=== PATIENT | female | born 1970 | race Caucasian/White ===

== ENCOUNTER 2020-06-14 10:55 | Outpatient (RCR) | payer MEDICAID, OTHER, SELFPAY | END 2020-07-22 13:32 | disposition other institution (70) | LOC: HO.PT 10:55 | DX: M54.41 Lumbago with sciatica, right side (principal) | CPT/HCPCS: 97110; 97112; 97162; 97535 ==

== ENCOUNTER → 2020-08-10 14:19 | Outpatient (BNVA) | payer OTHER, SELFPAY | PROVIDERS: Visit Provider Nurse Practitioner Family | DX: Z76.89 Persons encountering health services in other specified circumstances (principal) ==

== ENCOUNTER 2020-08-15 14:59 | Outpatient (REF) | payer OTHER, SELFPAY | END 2020-08-15 15:00 | disposition home or self-care (01) | LOC: HO.LAB 14:59 | PROVIDERS: Visit Provider Internal Medicine | DX: Z20.822 Contact with and (suspected) exposure to COVID-19 (principal) | CPT/HCPCS: 36415; C9803; U0003 ==

== ENCOUNTER 2020-08-26 10:45 | Outpatient (REF) | payer OTHER, SELFPAY ==
[2020-08-26 11:50] LABS: Hematocrit 41.7 % (37-47); Hemoglobin 13.3 g/dl (12.0-16.0); Mean Corpuscular HGB Conc 31.9 g/dl (31.0-35.0); Mean Corpuscular Hemoglobin 28.1 pg (27.0-33.0); Mean Corpuscular Volume 88.2 fL (80-98); Platelet Count 282 X10*3/uL (160-400); Red Blood Count 4.73 X10*6/uL (4.20-5.50); Red Cell Distribution Width 13.1 % (11.0-16.0); White Blood Count 5.6 X10*3/uL (4.8-10.8)
[2020-08-26 12:13] LABS: Alanine Aminotransferase 24 U/L (0-31); Albumin Level 4.1 g/dL (3.5-5.0); Alkaline Phosphatase 111 U/L (39-117); Anion Gap 11 (12-20); Aspartate Amino Transferase 23 U/L (5-31); Bilirubin Total 0.5 mg/dL (0.0-1.0); Blood Urea Nitrogen 14 mg/dL (9-16); Calcium 8.6 mg/dL (8.4-10.2); Carbon Dioxide 28 mmol/L (22-29); Chloride 107 mmol/L (96-108); Estimated Glomerular Filt Rate > 60; Glucose Random 120 mg/dL (60-115); Potassium 3.9 mmol/l (3.3-5.1); Sodium 142 mmol/L (135-145); Total Protein 7.1 g/dL (6.5-8.0)
== END 2020-08-26 10:46 | disposition home or self-care (01) ==
LOC: HO.LAB 10:45
PROVIDERS: Visit Provider Nurse Practitioner Family
DX: Z12.11 Encounter for screening for malignant neoplasm of colon (principal)
CPT/HCPCS: 36415; 80053; 85027

== ENCOUNTER 2020-09-23 13:41 | Emergency (ER) | payer OTHER, SELFPAY ==
--- NOTE | ~2020-09-23 | XR_ITS ---
EXAMINATION: LEFT FOOT AND LEFT ANKLE. CLINICAL INFORMATION: Tripped. Fall. Pain. COMPARISON: None TECHNIQUE: Left ankle 3 views and left foot 2 views. FINDINGS: Left ankle: There is a nondisplaced fracture tip of lateral malleolus with moderate bimalleolar soft tissue swelling. The ankle mortise and subtalar joints are normal. A moderate size calcaneal heel spur. Left foot: There is no visible acute fracture, dislocation or subluxation seen. The soft tissues are normal. XR/XR foot LT min 3V IMPRESSION: Nondisplaced fracture tip of lateral malleolus with bimalleolar soft tissue swelling. Small calcaneal healed spur.
--- NOTE | ~2020-09-23 | XR_ITS ---
EXAMINATION: LEFT FOOT AND LEFT ANKLE. CLINICAL INFORMATION: Tripped. Fall. Pain. COMPARISON: None TECHNIQUE: Left ankle 3 views and left foot 2 views. FINDINGS: Left ankle: There is a nondisplaced fracture tip of lateral malleolus with moderate bimalleolar soft tissue swelling. The ankle mortise and subtalar joints are normal. A moderate size calcaneal heel spur. Left foot: There is no visible acute fracture, dislocation or subluxation seen. The soft tissues are normal. XR/XR ankle LT min 3V IMPRESSION: Nondisplaced fracture tip of lateral malleolus with bimalleolar soft tissue swelling. Small calcaneal healed spur.
[2020-09-23 14:01] VITALS: BP 145/92; PULSE 84; RESP 18; TEMP 36.4; O2SAT 98; BMI 27.4
[2020-09-23] MEDS: oxyCODONE HCl Immed Release 5 MG TABLET PO (14:26)
[2020-09-23] MEDS: Ibuprofen 600 MG TABLET PO (14:26)
--- NOTE | 2020-09-23 14:40 | ED_ITS ---
HPI - Extremity Injury (Lower) General Chief Complaint: Extremity Injury, Lower Stated Complaint: left ankle inj Time Seen by Provider: 09/23/20 13:58 Source: patient Mode of arrival: ambulatory Limitations: no limitations History of Present Illness HPI Narrative: 50-year-old female presenting to the ED after she tripped and fell down 3 steps at her home yesterday where she missed the last step injuring her left ankle/foot now has persistent pain/swelling and bruising and limping with walking. Patient denies head injury or loss of consciousness. Denies any paresthesias or any other injuries complaints or concerns at this time. MD complaint: ankle injury, foot injury and fall Onset (ago): day(s) (yesterday ) Type of Injury: unknown Place: home Severity: severe Severity scale (1-10): 10 Relieving factors: nothing Exacerbating factors: weight bearing, movement and palpation Context: fall Associated symptoms: swelling Other symptoms: none Treatments prior to arrival: other ([id number] Motrin Tylenol no symptomatic relief) Related Data Home Medications Medication Instructions Recorded Confirmed naproxen 500 mg tablet 500 mg PO BID 08/10/20 09/12/20 Previous Rx's Medication Instructions Recorded bisacodyl 5 mg tablet,delayed 10 mg PO ONCE 1 Days #2 tab 08/10/20 release polyethylene glycol 3350 17 238 g PO ONCE #238 g 08/10/20 gram/dose oral powder acetaminophen [Tylenol Extra 1,000 mg PO QID PRN #14 tab 09/23/20 Strength] ibuprofen 800 mg PO Q8H PRN #14 tab 09/23/20 oxycodone 5 mg PO BID PRN #10 tab 09/23/20 Allergies Allergy/AdvReac Type Severity Reaction Status Date / Time No Known Allergies Allergy Verified 08/10/20 14:20 Review of Systems Review of Systems: Constitutional : No changes in activity, No lethargy, No recent prior head injury, No agitation, No increased fussiness ENT/Mouth : No Ear Pain, No Nasal discharge/drainage Eyes: No Eye Pain, No Swelling, No Redness, No Foreign Body, No Vision Changes Cardiovascular : No Chest Pain, No SOB Respiratory : No Cough Gastrointestinal : No Nausea, No Vomiting, No abdominal Pain Genitourinary : No Dysuria, No Urinary Frequency, No Urinary Incontinence, No Urgency, No Flank Pain Musculoskeletal : + joint pain, No neck stiffness, No back pain/injury Skin : No lacerations Neuro : No unsteady gait, No Paresthesias, No Loss of Consciousness, No altered mental status, No Headache Yes all other systems are reviewed and are negative [facility] Past Medical History Attestation statement: The following information was validated with the patient. Medical History No significant medical problems Surgical History Hx of cholecystectomy Family History Family History Father No problems noted. Mother Alive and well Social History Social History Alcohol intake: never Smoking Status: Never smoker Advance Directives: No Advance Directives Information Provided: Yes Physical Exam Vital Signs: Vital Signs: Last Vital Signs Temp 97.6 F 09/23/20 14:01 Pulse 84 09/23/20 14:01 Resp 18 09/23/20 14:01 BP 145/92 H 09/23/20 14:01 Pulse Ox 98 09/23/20 14:01 Body Mass Index 27.4 vital signs have been reviewed as normal and appeared to be correct. Blood pressure normal. Heart rate normal. Respiration rate normal. Temperature normal. Oxygen saturation normal. Appearance: Alert. Oriented X3. No acute distress. Head: Normal external exam. Normocephalic. Atraumatic. No Mina signs noted. No raccoon eyes noted Eyes: PERRLA. EOMI. Conjunctiva and sclera normal. Eyelids normal. ENT: Pharynx normal. Uvula midline. Moist mucous membranes. Neck: Normal inspection. Neck supple. FROM. No adenopathy. No meningeal signs. CVS: Normal heart rate and rhythm. Heart sound normal. No murmurs noted. Pulses normal throughout. Respiratory: No respiratory distress. Painless inspiration. Breath sounds normal. No wheezes/rales/rhonchi noted. Chest nontender. No accessory muscle usage noted or decreased air movement noted. Back: Full range of motion noted. Skin: Skin warm and dry. Normal skin color. Normal skin turgor. No rashes/lesions/lacerations noted. Extremities: Patient tender to palpation of medial and lateral malleolus of the left ankle with moderate soft tissue swelling and ecchymosis noted. No laxity on my exam. Pulses are within normal limits. Negative Reyes test. Achilles tendon is intact. No lower extremity edema. Otherwise all other Extremities exhibit normal range of motion and nontender. Neuro: Oriented X 3. No motor deficit. No sensory deficit. Reflexes normal. Course Course Course Narrative: 50-year-old female presenting to the ED after she had a mechanical fall down her steps at her home with injury to her left ankle/foot yesterday. Denied head injury or loss of consciousness. - x-ray obtained revealed nondisplaced fracture tip of lateral malleolus with bimalleolar soft tissue swelling. Will place in a posterior splint provide crutches then DC home with referral to Orthopedics and instructions return if any new or worsening symptoms. Patient understands agrees the plan. Procedures Orthopedic Splinting/Casting Injury #1: Side: left Lower Extremity Injury Location: lower leg and ankle Lower Extremity Immobilizer: posterior splint Other Orthopedic Equipment: crutches MDM - Extremity Injury (Lower) Medical Records Attestation: I reviewed the patient's medical records. Lab Data Attestation: I reviewed the patient's lab results. Imaging Data Left ankle/foot x-ray: Attestation: I personally reviewed and interpreted this imaging study as follows: Radiologist's impression: FINDINGS: Left ankle: There is a nondisplaced fracture tip of lateral malleolus with moderate bimalleolar soft tissue swelling. The ankle mortise and subtalar joints are normal. A moderate size calcaneal heel spur. Left foot: There is no visible acute fracture, dislocation or subluxation seen. The soft tissues are normal. XR/XR foot LT min 3V IMPRESSION: Nondisplaced fracture tip of lateral malleolus with bimalleolar soft tissue swelling. Small calcaneal healed spur. Discharge Plan Discharge Clinical Impression: Fall, Fracture of left malleolus, Ankle bruise Patient Disposition: Home, Self-Care Instructions: Ankle Fracture (ED), Crutch Instructions (ED), Splint Care (ED) Prescriptions: New ibuprofen 800 mg tablet 800 mg PO Q8H PRN (Reason: pain) Qty: 14 RF: 0 oxycodone 5 mg tablet 5 mg PO BID PRN (Reason: pain) Qty: 10 RF: 0 acetaminophen [Tylenol Extra Strength] 500 mg tablet 1,000 mg PO QID PRN (Reason: fever or pain) Qty: 14 RF: 0 No Action naproxen 500 mg tablet 500 mg PO BID RF: 0 polyethylene glycol 3350 [Miralax] 17 gram/dose powder 238 g PO ONCE Qty: 238 RF: 0 bisacodyl [Dulcolax (bisacodyl)] 5 mg tablet,delayed release (DR/EC) 10 mg PO ONCE 1 Days Qty: 2 RF: 0 Referrals: Martha Harvey MD [Physician] - 2 days (Call Saturday to make a follow-up appointment within the next 7-10 days) Stand Alone Forms: Work/School Release Print Language: Vietnamese
== END 2020-09-23 15:26 | disposition home or self-care (01) ==
PROVIDERS: Emergency Provider Emergency Medicine Emergency Medical Services
DX: S82.65XA Nondisplaced fracture of lateral malleolus of left fibula, initial encounter for closed fracture (principal); S90.02XA Contusion of left ankle, initial encounter; W10.8XXA Fall (on) (from) other stairs and steps, initial encounter; M77.32 Calcaneal spur, left foot; Y93.9 Activity, unspecified; Y92.018 Other place in single-family (private) house as the place of occurrence of the external cause; Y99.9 Unspecified external cause status
CPT/HCPCS: 29515; 73610; 73630; 99283

== ENCOUNTER 2020-10-10 09:45 | Outpatient (REF) | payer OTHER, SELFPAY ==
--- NOTE | ~2020-10-10 | XR_ITS ---
EXAMINATION: XR ANKLE, LEFT CLINICAL INFORMATION: Fracture COMPARISON: Previous x-ray September 2020 TECHNIQUE: AP, lateral, and mortise views of the left ankle. FINDINGS: Bone alignment is normal. Minimally displaced fracture of the lateral malleolus appears unchanged. No other fracture is seen. The ankle mortise is normal. There are calcaneal spurs. There is lateral soft tissue swelling. There is an overlying splint. XR/XR ankle LT min 3V IMPRESSION: No change in minimally displaced fracture of the lateral malleolus from previous exam.
== END 2020-10-10 09:46 | disposition home or self-care (01) ==
LOC: HO.XRAY 09:45
PROVIDERS: Visit Provider Physician Assistant
DX: M25.572 Pain in left ankle and joints of left foot (principal); S82.832A Other fracture of upper and lower end of left fibula, initial encounter for closed fracture
CPT/HCPCS: 73610; 99202

== ENCOUNTER 2020-11-08 09:33 | Day surgery (SDC) | payer OTHER, SELFPAY ==
--- NOTE | 2020-09-14 13:37 | HO.ANESPROP2 ---
HPI - Anesthesia Eval Consult details Narrative: 50yo F for Colonoscopy [facility] Past Medical History Medical History (Updated 09/12/20 @ 14:10 by Livia Rosado) No significant medical problems Family History Family History (Updated 08/10/20 @ 14:25 by Sharyn Franz CMA) Father No problems noted. Mother Alive and well Surgical History Surgical History (Updated 08/10/20 @ 14:26 by Sharyn Franz CMA) Hx of cholecystectomy Social History Social History (Updated 09/12/20 @ 14:10 by Livia Rosado) Alcohol intake: never Smoking Status: Never smoker Meds Allergies Allergy/AdvReac Type Severity Reaction Status Date / Time No Known Allergies Allergy Verified 08/10/20 14:20 Home Medications Medication Instructions Recorded Confirmed Type naproxen 500 mg tablet 500 mg PO BID 08/10/20 09/12/20 History Exam Exam Date and Time: September 14, 2020 6667 Assessment and Plan Assessment Anesthesia Assessment: Chart Reviewed
[2020-11-02 11:32] VITALS: BMI 35.2
--- NOTE | 2020-11-07 10:41 | HO.ANESPROP2 ---
HPI - Anesthesia Eval Consult details Narrative: 50yo F for Colonoscopy PMFSH Active Problems Active Problems: All Active Problems (Updated 11/02/20 @ 12:33 by Briseida Ibanez) Left ankle pain (Acute) Closed fracture of left distal fibula (Acute) Past Medical History Medical History (Updated 11/02/20 @ 12:33 by Briseida Ibanez) Lumbago PONV (postoperative nausea and vomiting) Pruritus ani Sciatica, right side Family History Family History Father No problems noted. Mother Alive and well Surgical History Surgical History (Updated 11/02/20 @ 11:27 by Briseida Ibanez) Hx of cholecystectomy Social History Social History (Updated 11/02/20 @ 11:32 by Briseida Ibanez) Alcohol intake: never Smoking Status: Never smoker Use of substances other than those prescribed or required for medical reasons: No Advance Directives: No (unknown) Advance Directives Information Provided: No Advance Directives on File: No (unknown) Meds Allergies Allergy/AdvReac Type Severity Reaction Status Date / Time No Known Allergies Allergy Verified 11/02/20 11:25 Home Medications Medication Instructions Recorded Confirmed Last Taken Type naproxen 500 mg tablet 500 mg PO BID 08/10/20 11/02/20 Unknown History Exam Exam Date and Time: November 07, 2020 1041 Height,Weight and Vital Signs: Height 5 ft Weight 81.647 kg Assessment and Plan Assessment Anesthesia Assessment: Chart Reviewed
--- NOTE | 2020-11-08 10:00 | HO.ANESPROP2 ---
HPI - Anesthesia Eval Consult details Narrative: 50 yo female patient for colonoscopy PMFSH Active Problems Active Problems: All Active Problems (Updated 11/02/20 @ 12:33 by Briseida Ibanez) Left ankle pain (Acute) Closed fracture of left distal fibula (Acute) Past Medical History Medical History (Updated 11/02/20 @ 12:33 by Briseida Ibanez) Lumbago PONV (postoperative nausea and vomiting) Pruritus ani Sciatica, right side Family History Family History Father No problems noted. Mother Alive and well Family history of problems with anesthesia: No Surgical History Surgical History (Updated 11/02/20 @ 11:27 by Briseida Ibanez) Hx of cholecystectomy History of Problems with Anesthesia: No Social History Social History (Updated 11/02/20 @ 11:32 by Briseida Ibanez) Alcohol intake: never Smoking Status: Never smoker Use of substances other than those prescribed or required for medical reasons: No Advance Directives: No (unknown) Advance Directives Information Provided: No Advance Directives on File: No (unknown) Meds Allergies Allergy/AdvReac Type Severity Reaction Status Date / Time No Known Allergies Allergy Verified 11/02/20 11:25 Active Medications: Current Medications Generic Name Dose Route Start Last Admin Trade Name Leonidas PRN Reason Stop Dose Admin Lactated Ringer's 1,000 mls @ 100 mls/hr 11/08/20 09:45 Lr IVCONT .Q10H [facility] Home Medications Medication Instructions Recorded Confirmed Last Taken Type naproxen 500 mg tablet 500 mg PO BID 08/10/20 11/02/20 Unknown History Exam Exam Date and Time: November 08, 2020 1000 Height,Weight and Vital Signs: Height 5 ft Weight 81.647 kg Vital Signs Temp Pulse Resp BP Pulse Ox 11/08/20 10:01 97.1 F 71 16 128/66 99 Airway Mallampati Class: II TM Dist: >3cm Neck ROM: Full Loose/Missing/Broken Teeth: Yes (Broken bottom front tooth) Heart: RRR Lungs: CTAB Assessment and Plan Assessment Anesthesia Assessment: Anesthesia Plan Discussed and Chart Reviewed Final Anesthetic Review NPO: Yes ASA Class: II Final Preanesthetic Review: No Changes in Pt Med Stat, Meds/Allgs Chart Reviewed, Consent Obtained/Reviewed and Anes Risks/Benef Reviewed Patient Risk: Low Procedure Risk: Low Assessment/Block/Sedation in SS: Assess/Block/Sedation-SS Anesthetic Plan Anesthetic Plan: MAC: Disposition: Standard PACU
[2020-11-08 10:01] VITALS: BP 128/66; PULSE 71; RESP 16; TEMP 36.2; O2SAT 99
[2020-11-08] MEDS: Lactated Ringers 1,000 ML 100 ML IVCONT (10:24)
--- NOTE | 2020-11-08 10:38 | P.OP_ITS ---
Operative Note Operative Note Date of Service: 11/08/20 Narrative: Pre-op diagnosis: Colon cancer screening Post-op diagnosis: other (Diverticulosis, hemorrhoids) Procedure: COLONOSCOPY TILL CECUM Consent: Indications for the procedure and potential complications of bleeding, perforation, reaction to medications and missed diagnosis were discussed with the patient and informed consent was obtained. Instrument: Olympus PCF H 190 L variable stiffness pediatric colonoscope Monitoring: Vital signs and clinical assessment, intermittent blood pressure monitoring, continuous EKG monitoring, Pulse oximetry and Carbon Dioxide monitoring were done throughout the procedure. Colon withdrawl time was 22 minutes. Procedure: The patient was placed in the left lateral decubitis position and pre-procedure medications were administered. After a digital rectal examination of the ano-rectum, the video colonoscope was inserted into the rectum and advanced through the colon to the cecum. The colonoscope was slowly withdrawn in a retrograde panoramic fashion and the colon mucosa was carefully examined including a retroflexed view of the rectum. Findings and interventions are described below. Procedure Difficulty: Without difficulty Findings: Terminal Ileum: Not evaluated Cecum: Normal Ascending Colon: Normal Transverse Colon: Normal Descending Colon: Normal Sigmoid Colon: Moderate diverticulosis Rectum: Normal Ano-rectum: Moderate internal hemorrhoids Colon preparation: Good after copious irrigation and fair in some areas of the colon (pt took 75 to 80% of the prep) Impression and Post Procedure Diagnosis: Colonoscopy Findings: No polyps were detected Moderate diverticulosis seen in the sigmoid colon Moderate hemorrhoids on retroflexed exam. Prep was good after copious irrigation and fair in some areas of the colon (pt took 75 to 80% of the prep) Plan: Await pathology results Patient has an appointment on 11/22/20 in the GI Clinic with Jennifer Somers FNP- [place] . Can consider checking a stool FIT test every 1-2 yrs for colon cancer screening versus repeat Colonoscopy in 1-2 years due to fair prep in some areas of the colon Above findings were reviewed with the patient and diverticulosis handout was given in the discharge area Surgeon: Amy Luna MD Anesthesia: MAC [id number] Android Developer: Mya Shankar Estimated blood loss (mL): 0 Pathology: none sent Condition: stable Disposition: PACU
--- NOTE | 2020-11-08 10:38 | MHC.SHP ---
Pre-Procedural Eval Section B Chief Complaint: screening Details of Present Illness: Colon cancer screening Relevant Family History (Specify if Yes): No Relevant Social History: None Present Medications: see Short Stay Collaborative assessment Medical History: Significant History (Ankle pain) History of Previous Operations: Relevant previous surgery/procedure and date(s) (Hx of cholecystectomy) Allergies: Allergies Allergy/AdvReac Type Severity Reaction Status Date / Time No Known Allergies Allergy Verified 11/02/20 11:25 Review of Systems Sugical H&P ROS: Negative: Constitution, Cardiovascular, Respiratory and Gastrointestinal Exam Surgical H&P Exam: Normal: Heart, Normal: Lungs, Normal: Extremities and Normal: Abdomen Plan Diagnosis/Plan: Unchanged I have reviewed the history and physical and performed a pertinent physical examination on my patient. No changes have occurred unless specified.
[2020-11-08 11:24] VITALS: BP 90/51; PULSE 74; RESP 14; TEMP 37.2; O2SAT 97
[2020-11-08 11:39] VITALS: BP 113/76; PULSE 84; RESP 17; TEMP 36.7; O2SAT 98
== END 2020-11-08 12:24 | disposition home or self-care (01) ==
PROVIDERS: Visit Provider Internal Medicine Gastroenterology
PROC: 0DJD8ZZ Inspection of Lower Intestinal Tract, Via Natural or Artificial Opening Endoscopic (ICD-10-PCS; CPT 45378; principal; 2020-11-08 10:00)
DX: Z12.11 Encounter for screening for malignant neoplasm of colon (principal); K57.30 Diverticulosis of large intestine without perforation or abscess without bleeding; K64.8 Other hemorrhoids; Z90.49 Acquired absence of other specified parts of digestive tract
CPT/HCPCS: 45378

== ENCOUNTER → 2020-11-22 13:26 | Outpatient (BNVA) | payer OTHER, SELFPAY | PROVIDERS: Visit Provider Nurse Practitioner Family ==

== ENCOUNTER 2020-12-20 07:47 | Outpatient (REF) | payer OTHER, SELFPAY ==
--- NOTE | ~2020-12-20 | XR_ITS ---
EXAMINATION: XR ANKLE, LEFT CLINICAL INFORMATION: Pain left ankle dated COMPARISON: None TECHNIQUE: AP, lateral, and mortise views of the left ankle. FINDINGS: There is a small avulsion displaced fracture fragment tip of lateral malleolus, stable with left ankle in a hard cast. XR/XR ankle LT min 3V IMPRESSION: No change in the minimally displaced fracture lateral malleolus from previous exam.
== END 2020-12-20 07:48 | disposition home or self-care (01) ==
LOC: HO.HOSX 07:47
PROVIDERS: Visit Provider Physician Assistant
DX: S82.832A Other fracture of upper and lower end of left fibula, initial encounter for closed fracture (principal); M25.572 Pain in left ankle and joints of left foot
CPT/HCPCS: 73610; 99212

== ENCOUNTER → 2020-12-22 15:27 | Outpatient (BNVA) | payer OTHER, SELFPAY | PROVIDERS: PCP Internal Medicine Geriatric Medicine; Visit Provider Nurse Practitioner Family ==

== ENCOUNTER 2021-01-30 10:55 | Emergency (ER) | payer OTHER, MEDICAID, SELFPAY ==
--- NOTE | ~2021-01-30 | US_ITS ---
EXAMINATION: US VENOUS ULTRASOUND WITH DOPPLER LOWER EXTREMITY, LEFT CLINICAL INFORMATION: Left calf pain ankle fracture 09/23/2020. Assess for occult DVT. COMPARISON: None TECHNIQUE: Ultrasound of the deep veins is performed from the hip to the calf with compression sonography and color and pulse Doppler assessment. Spectral analysis with color-flow imaging is performed. FINDINGS: There is normal venous compression and respiratory variation and augmented flow. The visualized common femoral vein, superficial femoral vein, profunda femoral vein, popliteal vein, and the trifurcation region shows no evidence of deep venous thrombosis. No popliteal fossa cyst. US/US venous duplex LE LT IMPRESSION: No DVT demonstrated in the left lower extremity.
[2021-01-30 11:31] VITALS: BP 118/88; PULSE 82; RESP 16; TEMP 36.7; O2SAT 98; BMI 34.7
[2021-01-30 13:28] VITALS: BP 161/88; PULSE 92; RESP 20; O2SAT 100
--- NOTE | 2021-01-30 14:20 | ED.EXTPRO ---
HPI - Extremity Problem General Chief complaint: Extremity Problem Stated complaint: leg pain Time Seen by Provider: 01/30/21 12:29 Source: patient Mode of arrival: ambulatory History of Present Illness HPI Narrative: 50-year-old female with a past medical history diverticulosis, sciatica, nondisplaced fracture of the left lateral malleolus on 09/23/20 presenting to the ED complaining of continued left ankle pain radiating to left calf x3 days at prior fx site. Admits to associated tingling. Reports wears ortho boot out of the house for comfort however takes off at home due to discomfort. Denies SOB, CP, weakness, new or recent injury/trauma or fall since initial injury Related Data Home Medications Medication Instructions Recorded Confirmed naproxen 500 mg tablet 500 mg PO BID 08/10/20 11/02/20 hydrocortisone 2.5 % topical cream AK QID 11/22/20 with perineal applicator Previous Rx's Medication Instructions Recorded acetaminophen [Tylenol Extra 1,000 mg PO QID PRN #14 tab 09/23/20 Strength] ibuprofen 800 mg PO Q8H PRN #14 tab 09/23/20 magnesium oxide 400 mg PO DAILY #30 cap 12/22/20 acetaminophen [Tylenol Extra 500 mg PO Q6H PRN #20 tab 01/30/21 Strength] naproxen 500 mg PO BID PRN 10 Days #20 tab 01/30/21 Allergies Allergy/AdvReac Type Severity Reaction Status Date / Time No Known Allergies Allergy Verified 12/22/20 15:28 Review of Systems Review of Systems: Constitutional: No Fever, No Chills Cardiovascular: No Chest Pain, No SOB Respiratory: No Cough Musculoskeletal: + joint pain, No Myalgias, No Joint Swelling Skin: No Skin Lesions, No rash Neuro: No Weakness, No Numbness, + Paresthesias Yes all other systems are reviewed and are negative [facility] Past Medical History Attestation statement: The following information was validated with the patient. Medical History Diverticulosis Internal hemorrhoid Lumbago PONV (postoperative nausea and vomiting) Pruritus ani Sciatica, right side Surgical History Hx of cholecystectomy Family History Family History Father No problems noted. Mother Alive and well Social History Social History Household Members: Spouse and Children Alcohol intake: never Advance Directives: Yes Advance Directives Information Provided: Yes Advance Directives on File: No Patient : No Physical Exam Vital Signs: Vital Signs: Last Vital Signs Temp 98.0 F 01/30/21 11:31 Pulse 92 01/30/21 13:28 Resp 20 01/30/21 13:28 BP 161/88 H 01/30/21 13:28 Pulse Ox 100 01/30/21 13:28 Body Mass Index 34.7 Const: General: cooperative and healthy appearing Orientation/consciousness: patient oriented x3 Limitations: no limitations HENMT: Head: Yes normal to inspection Ears: hearing grossly normal bilaterally General nose exam: Normal external nose present Face and sinus: Yes normal facial exam Eyes: General: appearance normal, both eyes and all related structures EOM: EOMs intact bilaterally Neck: Neck: Yes normal visual inspection Resp: Effort & Inspection: normal respiratory effort Cardio: Rate: regular rate Peripheral pulses: dorsalis pedis present Skin: Rashes: no rashes Wounds: no wounds Neuro: Other: Left ankle with tenderness to palpation. Left calf tender to palpation. No appreciable swelling/edema. Neurovascularly intact distally. Sensation intact to light touch General: patient oriented x3, gait normal (Ambulating with ortho boot), tone normal, moves all extremities and no focal motor deficits Course Course Course Narrative: US venous duplex LE LT IMPRESSION: No DVT demonstrated in the left lower extremity >> results discussed with patient including worrisome signs and symptoms and strict return precautions. Is to follow-up with orthopedics/PCP MDM - Extremity (Nontraumatic) MDM Narrative Medical decision making narrative: 50-year-old female with a past medical history diverticulosis, sciatica, nondisplaced fracture of the left lateral malleolus on 09/23/20 presenting to the ED complaining of continued left ankle pain radiating to left calf x3 days at prior fx site. Admits to associated tingling. Per chart review patient follow-up with orthopedics on 12/20, was recommended to have patient begin physical therapy to help with range of motion and decrease stiffness. X-rays were obtained in the office at that time that revealed routine healing Concern for DVT. Low concern for new or worsening fracture without recent trauma and x-ray showing routine healing last month. Plan: Venous duplex ultrasound Discharge Plan Discharge Clinical Impression: Left ankle pain, Pain of left calf Patient Disposition: Home, Self-Care Instructions: Arthralgia (ED) Additional Instructions: Your ultrasound was negative for any DVT/blood clot. Continue to wear ortho boot as needed for comfort at home. You need to follow-up with orthopedics and her primary care doctor. Ice and elevate your leg. Take Tylenol and naproxen. Take naproxen with food. If her pain persists or worsens please return to the ED Blas ultrasonido fue negativo para cualquier trombosis venosa profunda / co?gulo de teodoro. Contin?e usando la bota ortop?dica seg?n sea necesario para blas comodidad en casa. Debe hacer un seguimiento con el ortopedista y blas m?dico de atenci?n primaria. Hielo y levante la pierna. [place] Tylenol y naproxeno. [place] naproxeno con comida. Si el dolor persiste o empeora, regrese al servicio de urgencias. Prescriptions: New acetaminophen [Tylenol Extra Strength] 500 mg tablet 500 mg PO Q6H PRN (Reason: pain or fever) Qty: 20 RF: 0 naproxen 500 mg tablet 500 mg PO BID PRN (Reason: pain) 10 Days Qty: 20 RF: 0 No Action ibuprofen 800 mg tablet 800 mg PO Q8H PRN (Reason: pain) Qty: 14 RF: 0 acetaminophen [Tylenol Extra Strength] 500 mg tablet 1,000 mg PO QID PRN (Reason: fever or pain) Qty: 14 RF: 0 naproxen 500 mg tablet 500 mg PO BID RF: 0 hydrocortisone 2.5 % cream with perineal applicator [place] QID RF: 0 magnesium oxide 400 mg magnesium capsule 400 mg PO DAILY Qty: 30 RF: 2 Referrals: Mita Salamanca PA-C [Physician Detail Technician] - 1 week [facility] [Primary Care Provider] - 2 days Print Language: Hebrew
== END 2021-01-30 14:42 | disposition home or self-care (01) ==
PROVIDERS: Emergency Provider Emergency Medicine
DX: M25.572 Pain in left ankle and joints of left foot (principal); M79.662 Pain in left lower leg; S82.65XD Nondisplaced fracture of lateral malleolus of left fibula, subsequent encounter for closed fracture with routine healing; X58.XXXD Exposure to other specified factors, subsequent encounter
CPT/HCPCS: 93971; 99283; 99284

== ENCOUNTER → 2021-02-03 14:21 | Outpatient (BNVA) | payer OTHER, MEDICAID, SELFPAY | PROVIDERS: Visit Provider Physician Assistant | DX: M25.572 Pain in left ankle and joints of left foot (principal); S82.832D Other fracture of upper and lower end of left fibula, subsequent encounter for closed fracture with routine healing | CPT/HCPCS: 99212 ==

== ENCOUNTER 2021-03-06 07:51 | Outpatient (REF) | payer OTHER, MEDICAID, SELFPAY | END 2021-03-06 07:52 | disposition home or self-care (01) | LOC: HO.HOSX 07:51 | PROVIDERS: Visit Provider Physician Assistant | DX: Z13.89 Encounter for screening for other disorder (principal) ==

== ENCOUNTER → 2021-04-18 10:57 | Outpatient (BNVA) | payer OTHER, MEDICAID, SELFPAY | PROVIDERS: PCP Internal Medicine Geriatric Medicine; Visit Provider Nurse Practitioner Family ==

== ENCOUNTER → 2021-05-16 08:44 | Outpatient (BNVA) | payer OTHER, MEDICAID, SELFPAY | PROVIDERS: PCP Internal Medicine Geriatric Medicine; Visit Provider Nurse Practitioner Family ==

== ENCOUNTER 2021-08-14 12:53 | Outpatient (REF) | payer MEDICAID, OTHER, SELFPAY ==
--- NOTE | ~2021-08-14 | XR_ITS ---
EXAMINATION: XR ANKLE, LEFT CLINICAL INFORMATION: Fracture follow-up COMPARISON: Left ankle x-rays 12/20/2020 TECHNIQUE: AP, lateral, and mortise views of the left ankle. FINDINGS: Interval healing of lateral malleolus fracture. A 3.5 mm osseous density abutting the inferomedial aspect of the distal most aspect of the fibula possibly represents an unfused osseous fragment. There is no appreciable soft tissue swelling of the ankle. Ankle mortise is well-maintained. Small plantar calcaneal enthesophytes. XR/XR ankle LT min 3V IMPRESSION: Healed lateral malleolar fracture.
== END 2021-08-14 12:54 | disposition home or self-care (01) ==
LOC: HO.XRAY 12:53
PROVIDERS: PCP Internal Medicine Geriatric Medicine; Visit Provider Physician Assistant
DX: S82.62XD Displaced fracture of lateral malleolus of left fibula, subsequent encounter for closed fracture with routine healing (principal); X58.XXXD Exposure to other specified factors, subsequent encounter
CPT/HCPCS: 73610

== ENCOUNTER → 2021-09-11 12:28 | Outpatient (BNVA) | payer OTHER, SELFPAY | PROVIDERS: PCP Internal Medicine Geriatric Medicine; Visit Provider Physician Assistant | DX: M25.572 Pain in left ankle and joints of left foot (principal); S82.832D Other fracture of upper and lower end of left fibula, subsequent encounter for closed fracture with routine healing | CPT/HCPCS: 99212 ==

== ENCOUNTER 2021-11-06 08:03 | Outpatient (REF) | payer OTHER, SELFPAY ==
--- NOTE | ~2021-11-06 | XR_ITS ---
EXAMINATION: XR CERVICAL SPINE XR LUMBAR SPINE CLINICAL INFORMATION: Lumbago with sciatica right side. Neck pain with radiculopathy. COMPARISON: None TECHNIQUE: 3 views lumbar spine, 5 views cervical spine. FINDINGS: LUMBAR SPINE: There is maintained lumbar lordosis. There is loss of the L5-S1 disc height. Mild ventral spondylosis. The rest of the disc heights, all vertebral disc heights and alignment are normal. No visible acute fracture, dislocation or lytic process seen. CERVICAL SPINE: There is maintained cervical lordosis. The vertebral heights, alignment and disc heights are normal. No visible acute fracture, dislocation or subluxation seen. The neural foramina are patent bilaterally. XR/XR cervical spine min 6V IMPRESSION: Degenerative disc changes L5-S1 disc level with ventral spondylosis. Unremarkable cervical spine exam.
--- NOTE | ~2021-11-06 | XR_ITS ---
EXAMINATION: XR CERVICAL SPINE XR LUMBAR SPINE CLINICAL INFORMATION: Lumbago with sciatica right side. Neck pain with radiculopathy. COMPARISON: None TECHNIQUE: 3 views lumbar spine, 5 views cervical spine. FINDINGS: LUMBAR SPINE: There is maintained lumbar lordosis. There is loss of the L5-S1 disc height. Mild ventral spondylosis. The rest of the disc heights, all vertebral disc heights and alignment are normal. No visible acute fracture, dislocation or lytic process seen. CERVICAL SPINE: There is maintained cervical lordosis. The vertebral heights, alignment and disc heights are normal. No visible acute fracture, dislocation or subluxation seen. The neural foramina are patent bilaterally. XR/XR lumbar spine 2-3V IMPRESSION: Degenerative disc changes L5-S1 disc level with ventral spondylosis. Unremarkable cervical spine exam.
== END 2021-11-06 08:04 | disposition home or self-care (01) ==
LOC: HO.XRAY 08:03
PROVIDERS: Absent Provider Nurse Practitioner Primary Care; PCP Nurse Practitioner Primary Care; Visit Provider Registered Nurse Community Health
DX: M54.12 Radiculopathy, cervical region (principal); M54.41 Lumbago with sciatica, right side
CPT/HCPCS: 72052; 72100

== ENCOUNTER 2021-12-05 12:12 | Outpatient (REF) | payer OTHER, SELFPAY | END 2021-12-05 12:13 | disposition home or self-care (01) | LOC: HO.XRAY 12:12 | PROVIDERS: PCP Nurse Practitioner Primary Care; Visit Provider Nurse Practitioner Family | DX: Z13.89 Encounter for screening for other disorder (principal) ==

== ENCOUNTER 2021-12-29 11:00 | Outpatient (RCR) | payer OTHER, MEDICAID, SELFPAY | END 2022-01-31 12:47 | disposition home or self-care (01) | LOC: HO.PT 11:00 | PROVIDERS: PCP Internal Medicine Geriatric Medicine; Visit Provider Nurse Practitioner Family | DX: M54.16 Radiculopathy, lumbar region (principal) | CPT/HCPCS: 97110; 97140; 97161 ==

== ENCOUNTER 2022-08-02 17:00 | Outpatient (RCR) | payer OTHER, MEDICAID, SELFPAY | END 2022-08-08 12:31 | disposition home or self-care (01) | LOC: HO.PT 17:00 | PROVIDERS: PCP Internal Medicine Geriatric Medicine; Visit Provider Neurological Surgery | DX: M54.12 Radiculopathy, cervical region (principal) | CPT/HCPCS: 97110; 97112; 97162 ==

== ENCOUNTER 2023-02-04 15:48 | Outpatient (REF) | payer MEDICAID, OTHER, SELFPAY ==
--- NOTE | ~2023-02-04 | MR_ITS ---
EXAMINATION: MR LUMBAR SPINE WITHOUT CONTRAST CLINICAL INFORMATION: Low back pain COMPARISON: None TECHNIQUE: MRI of the lumbar spine was obtained using routine sequences without contrast. FINDINGS: Straightening of the normal lumbar lordosis. No significant spondylolisthesis. Vertebral body heights are maintained. There is no suspicious osseous lesion. There is disc desiccation and mild to moderate disc height loss at L5-S1, where there are mixed mild type I/II Modic endplate changes. Level by level detail as follows: L1-L2: No spinal canal or neural foraminal stenosis. L2-L3: No spinal canal or neural foraminal stenosis. L3-L4: Mild bilateral facet arthrosis. No spinal canal or neural foraminal stenosis. L4-L5: Mild bilateral facet arthrosis with left eccentric annular disc bulge. No spinal canal or neural foraminal stenosis. L5-S1: Disc osteophyte complex with mild bilateral facet arthrosis. No spinal canal stenosis. Mild bilateral neural foraminal stenosis. The conus medullaris terminates at the level of L1-L2. The distal spinal cord is normal in appearance. . No epidural fluid collection, hematoma, or mass. No significant abnormalities of the paraspinal musculature. Incompletely imaged thickening of the junctional zone of the uterus suggestive of adenomyosis, which would be better evaluated with dedicated pelvic ultrasound. Nonspecific stranding of the retroperitoneal fat along the left aspect of the aorta, stable since 04/29/2020, suggestive of benignity. The abdominal aorta is of normal contour and caliber. MR/MR lumbar spine wo con IMPRESSION: 1. Mild degenerative spondylosis of the lower lumbar spine without spinal canal stenosis. Mild bilateral neural foraminal stenosis at L5-S1. 2. Incompletely imaged thickening of the junctional zone of the uterus suggestive of adenomyosis, which would be better evaluated with dedicated pelvic ultrasound.
== END 2023-02-04 15:49 | disposition home or self-care (01) ==
LOC: HO.MRI 15:48
PROVIDERS: PCP Nurse Practitioner Primary Care; Visit Provider Nurse Practitioner Primary Care
DX: M54.16 Radiculopathy, lumbar region (principal)
CPT/HCPCS: 72148

== ENCOUNTER 2023-02-05 15:03 | Outpatient (REF) | payer MEDICAID, OTHER, SELFPAY ==
--- NOTE | ~2023-02-05 | MM_ITS ---
EXAMINATION: MM SCREENING DIGITAL BREAST TOMOSYNTHESIS, BILATERAL CLINICAL INFORMATION: Screening. Asymptomatic. Age 52. Prior mammography unavailable, unknown facility. No known family history breast cancer. The lifetime risk of breast cancer based on the Tyrer-Cuzick Model is 8%. COMPARISON: None (current study represents new baseline exam). TECHNIQUE: Digital breast tomosynthesis is performed in both the craniocaudal and mediolateral oblique views along with computer-aided detection (CAD). Synthesized 2D images are generated from the tomosynthesis. FINDINGS: The breasts are almost entirely fatty (ACR BI-RADS breast composition Category a). There are no significant masses, abnormal calcifications, or other abnormalities. No architectural abnormality. Background stromal markings are normal. The axilla and skin contours are unremarkable. MM/MM tomosynthesis screening BI IMPRESSION: No mammographic evidence of malignancy. ASSESSMENT: BI-RADS 1: Negative RECOMMENDATION: Routine annual mammography screening. This patient's information was entered into a reminder system with a target due date for their next mammogram.
== END 2023-02-05 15:04 | disposition home or self-care (01) ==
LOC: HO.MAMMO 15:03
PROVIDERS: PCP Nurse Practitioner Primary Care; Visit Provider Nurse Practitioner Primary Care
DX: Z12.31 Encounter for screening mammogram for malignant neoplasm of breast (principal)
CPT/HCPCS: 77063; 77067

== ENCOUNTER 2023-03-21 14:15 | Outpatient (REF) | payer MEDICAID, OTHER, SELFPAY ==
--- NOTE | ~2023-03-21 | US_ITS ---
EXAMINATION: US PELVIS CLINICAL INFORMATION: Pelvic pain; the last menstrual period is not specified. COMPARISON: CT abdomen and pelvis dated 04/30/2020. TECHNIQUE: Ultrasound of the pelvis is performed using both transabdominal and transvaginal transducers along with Doppler. Transvaginal imaging is performed due to inadequate visualization transabdominally. Imaging, in particular of the adnexa, is limited by overlapping bowel gas and body habitus. FINDINGS: Uterus: The uterus is anteverted and anteflexed. The uterus measures 7.4 x 3.5 x 4.8 cm. The double wall endometrial thickness is 0.9 mm. The uterus is smooth in contour and has normal myometrial echogenicity. No visible fibroid. Adnexa: Both ovaries are nonvisualized. There is a small amount of nonspecific, simple free fluid in the cul-de-sac. No adnexal mass is seen US/US pelvic and transvaginal IMPRESSION: 1. The ovaries are not visualized. 2. A small amount of simple, nonspecific free fluid is seen within the cul-de-sac.
== END 2023-03-21 14:16 | disposition home or self-care (01) ==
LOC: HO.US 14:15
PROVIDERS: PCP Nurse Practitioner Primary Care; Visit Provider Nurse Practitioner Primary Care
DX: R10.2 Pelvic and perineal pain (principal)
CPT/HCPCS: 76830; 76856

== ENCOUNTER 2023-06-18 17:00 | Outpatient (RCR) | payer MEDICAID, OTHER, SELFPAY | END 2023-10-04 10:13 | disposition home or self-care (01) | LOC: HO.PT 17:00 | PROVIDERS: PCP Nurse Practitioner Primary Care; Visit Provider Physician Assistant | DX: M54.10 Radiculopathy, site unspecified (principal) | CPT/HCPCS: 97035; 97110; 97140; 97161; 97530 ==

== ENCOUNTER → 2024-02-21 13:30 | Outpatient (BNV) | payer OTHER, SELFPAY | PROVIDERS: PCP Nurse Practitioner Primary Care; Visit Provider Radiology Diagnostic Radiology | DX: Z12.31 Encounter for screening mammogram for malignant neoplasm of breast (principal) | CPT/HCPCS: 77063; 77067 ==

== ENCOUNTER 2024-02-21 13:36 | Outpatient (REF) | payer OTHER, SELFPAY ==
--- NOTE | ~2024-02-21 | MM_ITS ---
EXAMINATION: MM SCREENING DIGITAL BREAST TOMOSYNTHESIS, BILATERAL CLINICAL INFORMATION: Screening. Asymptomatic. COMPARISON: Mammography: This study is compared with prior exams dating back to 2022. TECHNIQUE: Digital breast tomosynthesis is performed in both the craniocaudal and mediolateral oblique views along with computer-aided detection (CAD). Synthesized 2D images are generated from the tomosynthesis. FINDINGS: The breasts are almost entirely fatty (ACR BI-RADS breast composition Category a). There are no significant masses, abnormal calcifications, or other abnormalities. MM/MM tomosynthesis screening BI IMPRESSION: No mammographic evidence of malignancy. ASSESSMENT: BI-RADS BI-RADS 1 - Negative RECOMMENDATION: Routine annual mammography screening. 1 year F/U This examination should not preclude the clinical evaluation of a suspicious palpable abnormality. This patient's information was entered into a reminder system with a target due date for their next mammogram.
== END 2024-02-21 13:37 | disposition home or self-care (01) ==
LOC: HO.MAMMO 13:36
PROVIDERS: PCP Nurse Practitioner Primary Care; Visit Provider Nurse Practitioner Primary Care
DX: Z12.31 Encounter for screening mammogram for malignant neoplasm of breast (principal)
CPT/HCPCS: 77063; 77067

== ENCOUNTER 2024-03-03 12:54 | Outpatient (REF) | payer OTHER, SELFPAY ==
[2024-03-03 16:09] LABS: Appearance Urine Clear; Color Urine Dark Yellow; Glucose Urine UA Negative (Negative); Leukocyte Esterase Urine Negative (Negative); Nitrite Urine Negative (Negative); Specific Gravity - Urine 1.025 (1.005-1.025); Urine Blood Negative (Negative); Urine Ketones Trace mg/dL (Negative); Urine Protein Trace mg/dL (Neg-Trace)
[2024-03-03 16:15] LABS: Bacteria Urine Trace (None Seen); Hyaline Casts Urine 0-2 /LPF (0-2); RBC Urine 0-2 /HPF (0-2); WBC Urine 0-5 /HPF (0-5)
[2024-03-03 16:45] LABS: Creatinine Urine 169.31 mg/dL; Microalbum/Creatinine Ratio Ur 53.7 ug/mg cr (<30)
[2024-03-03 16:46] LABS: Anion Gap 13 (12-20); Blood Urea Nitrogen 13 mg/dL (9-16); Calcium 8.7 mg/dL (8.4-10.2); Carbon Dioxide 23 mmol/L (22-29); Chloride 109 mmol/L (96-108); Cholesterol 167 mg/dL (<200); Estimated Glomerular Filt Rate > 60; Glucose Random 93 mg/dL (60-115); HDL Cholesterol 39 mg/dL (>40); LDL Cholesterol Calculated 89 mg/dL (<100); Potassium 3.6 mmol/L (3.3-5.1); Sodium 141 mmol/L (135-145); Triglycerides 198 mg/dL (<150)
== END 2024-03-03 12:55 | disposition home or self-care (01) ==
LOC: HO.HHCL 12:54
PROVIDERS: Internal Medicine; Visit Provider Nurse Practitioner Primary Care
DX: E66.9 Obesity, unspecified (principal); I10 Essential (primary) hypertension; N30.00 Acute cystitis without hematuria
CPT/HCPCS: 36415; 80048; 80061; 81001; 82043; 82570

== ENCOUNTER 2024-03-17 09:37 | Outpatient (REF) | payer OTHER, SELFPAY ==
--- NOTE | 2024-03-17 09:45 | EMG_ITS ---
Bilateral median and ulnar motor and sensory studies were performed. Bilateral radial sensory study was performed and paraspinal muscles were tested with a needle. IMPRESSION: This is an unremarkable study with no evidence of median or ulnar neuropathy or radiculopathy. MD GHAZAL Munoz/KOFI / [id number]
== END 2024-03-17 09:38 | disposition home or self-care (01) ==
LOC: HO.NEURO 09:37
PROVIDERS: PCP Nurse Practitioner Primary Care; Visit Provider Nurse Practitioner Primary Care
DX: R20.2 Paresthesia of skin (principal)
CPT/HCPCS: 95886; 95911

== ENCOUNTER 2024-08-22 22:41 | Emergency (ER) | payer OTHER, SELFPAY ==
[2024-08-22 23:31] VITALS: BP 151/84; PULSE 113; RESP 18; TEMP 36.4; O2SAT 100; BMI 42.4
--- NOTE | 2024-08-22 23:37 | ECG_ITS ---
Test Reason : EPIGASTRIC PAIN Blood Pressure : */* mmHG Vent. Rate : 102 BPM Atrial Rate : 102 BPM P-R Int : 192 ms QRS Dur : 86 ms QT Int : 356 ms P-R-T Axes : 43 8 51 degrees QTcB Int : 463 ms Sinus tachycardia Nonspecific T wave abnormality Abnormal ECG When compared with ECG of 03-Oct-2019 10:15, Vent. rate has increased by 36 bpm Referred By: Generic ED Physician Electronically Signed By: MILTON SIERRA
--- NOTE | 2024-08-22 23:59 | MHC.EDTECH ---
Patient brought into triage area,EKG completed per order and signed by provider ,labs,covid,and flu obtained and sent
[2024-08-23 00:04] LABS: MANUAL DIFF FLAG NO
[2024-08-23 00:05] LABS: Basophils Percent Auto 0.4 % (0-2); Eosinophils Absolute Auto 0.1 X10*3/uL (0.0-0.4); Eosinophils Percent Auto 0.7 % (0-4); Hematocrit 40.8 % (37.0-47.0); Hemoglobin 13.7 g/dl (12.0-16.0); Imm Gran Abs Auto 0.03 X10*3/uL (0.00-0.03); Imm Gran Pct Auto 0.4 % (0.0-0.4); Lymphocytes Absolute Auto 1.5 X10*3/uL (1.2-4.9); Lymphocytes Percent Auto 17.1 % (20-40); Mean Corpuscular HGB Conc 33.6 g/dl (31.0-35.0); Mean Corpuscular Hemoglobin 29.1 pg (27.0-33.0); Mean Corpuscular Volume 86.8 fL (80.0-98.0); Mean Platelet Volume 9.2 fL (9.4-12.3); Monocytes Absolute Auto 0.3 X10*3/uL (0.1-1.2); Monocytes Percent Auto 3.9 % (2-11); Neutrophils Absolute Auto 6.6 x10*3/uL (2.0-8.3); Neutrophils Percent Auto 77.5 % (45-73); Platelet Count 264 X10*3/uL (160-400); Red Cell Distribution Width 12.8 % (11.0-16.0); White Blood Count 8.6 X10*3/uL (4.8-10.8)
[2024-08-23 00:28] LABS: IDNOW Serial# 16C4AD1C; Influenza A Negative (Negative); Influenza B2 Negative (Negative)
[2024-08-23 00:29] LABS: Alanine Aminotransferase 42 U/L (0-31); Albumin Level 4.1 g/dL (3.5-5.0); Alkaline Phosphatase 79 U/L (39-117); Anion Gap 10 (12-20); Aspartate Amino Transferase 36 U/L (5-31); Bilirubin Total 0.2 mg/dL (0.0-1.0); Blood Urea Nitrogen 13 mg/dL (9-16); Calcium 8.8 mg/dL (8.4-10.2); Carbon Dioxide 24 mmol/L (22-29); Chloride 110 mmol/L (96-108); Creatinine Clr Calc Pharmacy 106.3; Estimated Glomerular Filt Rate > 60; Glucose Random 170 mg/dL (60-115); Lipase 20 U/L (8-78); Potassium 3.6 mmol/L (3.3-5.1); Sodium 140 mmol/L (135-145); Total Protein 7.4 g/dL (6.5-8.0)
[2024-08-23 00:39] LABS: Troponin-I High Sensitivity < 2.7 ng/L (<3.5-17.0)
[2024-08-23 00:40] LABS: COVID-19 Test Negative (Negative); IDNOW Serial# 08D9AD1C
== END 2024-08-23 01:39 | disposition left against medical advice (07) ==
PROVIDERS: Emergency Provider Internal Medicine; PCP Nurse Practitioner Primary Care
DX: R10.13 Epigastric pain (principal); R00.0 Tachycardia, unspecified; R94.31 Abnormal electrocardiogram [ECG] [EKG]; Z79.899 Other long term (current) drug therapy; Z11.52 Encounter for screening for COVID-19
CPT/HCPCS: 36415; 80053; 83690; 84484; 85025; 87502; 87635; 93005; 99281; 99283

== ENCOUNTER → 2024-08-22 23:37 | Outpatient (BNV) | payer OTHER, SELFPAY | PROVIDERS: Emergency Provider Internal Medicine; PCP Nurse Practitioner Primary Care; Visit Provider Internal Medicine | DX: R94.31 Abnormal electrocardiogram [ECG] [EKG] (principal) | CPT/HCPCS: 93010 ==

== ENCOUNTER 2025-01-15 10:52 | Outpatient (REF) | payer OTHER, SELFPAY ==
--- OUTSIDE RECORDS SUMMARY | 2025-01-15 11:46 | XMS_ITS | Clinical Summary ---
Author Organization [facility] ity Address [address] [place] [address] Care Team Providers Care Crewman Armoured Personnel Carrier [id number] Name Role Phone Paty Negron MD Primary Care Provider [phone] Medical History Medical History Date Comments Essential hypertension DX:Essent ial hypertension Depressive disorder DX:Depressiv e disorder Social History Tobacco Use Types Packs/Day Years Used Date Smoking Tobacco: Never Smokeless Tobacco: Never Comments Unknown Sex and Gender Information Value Date Recorded Sex Assigned at Not on file Legal Sex Female 11:07 AM EST Gender Identity Not on file Sexual Orientation Not on file Obstetrics History Plan of Treatment Health Maintenance Due Date Last Done Comments Breast Cancer Screening 1968 Cervical Cancer Screening: Pap Smear 1989 Hepatitis B Vaccines (2 of 3 - 19+ 3-dose series) 12/15/2015 11/17/2015 Pneumococcal Vaccine: 50+ Years (1 of 1 - PCV) 2018 Zoster Vaccines (1 of 2) 2018 Colorectal Cancer Screening: Colonoscopy 07/10/2022 Depression Screening 07/10/2022 HIV Screening 07/10/2022 Hepatitis C Screening 07/10/2022 Social Influencers of Health Screening 07/10/2022 COVID-19 Vaccine ( - season) 2024 01/27/2021, 01/01/2021 Influenza Vaccine (Season Ended) 2025 07/25/2021, 05/19/2020, 10/16/2019, Additional history exists DTaP,Tdap,and Td Vaccines (2 - Td or Tdap) 10/15/2029 10/16/2019 HIB Vaccines Aged Out No longer eligi ble based on patient's age to complete this topic HPV Vaccines Aged Out No longer eligi ble based on patient's age to complete this topic Hepatitis A Vaccines Aged Out No long er eligible based on patient's age to complete this topic IPV Vaccines Aged Out No longer eligi ble based on patient's age to complete this topic MMR Vaccines Aged Out No longer eligi ble based on patient's age to complete this topic Meningococcal ACWY Vaccine Aged Out N o longer eligible based on patient's age to complete this topic Meningococcal B Vaccine Aged Out No l onger eligible based on patient's age to complete this topic Pneumococcal Vaccine: Pediatrics (0 to 5 Years) and At-Risk Patients (6 to 64 Years) Aged Out No longer eligible based on patient's age to complete this topic RSV Immunization Patients Under 20 months Aged Out No longer eligible based on patient's age to complete this topic Varicella Vaccines Aged Out No longer eligible based on patient's age to complete this topic Care Teams Crewman Armoured Personnel Carrier [id number] Relationship Specialty Start Date End Date Paty Negron MD [address] [place] [phone] PCP - General 04/05/22
[2025-01-15 14:05] LABS: Anion Gap 12 (12-20); Blood Urea Nitrogen 13 mg/dL (9-16); Calcium 9.2 mg/dL (8.4-10.2); Carbon Dioxide 29 mmol/L (22-29); Chloride 107 mmol/L (96-108); Cholesterol 171 mg/dL (<200); Estimated Glomerular Filt Rate > 60; Glucose Random 97 mg/dL (60-115); HDL Cholesterol 39 mg/dL (>40); LDL Cholesterol Calculated 103 mg/dL (<100); Potassium 3.9 mmol/L (3.3-5.1); Sodium 144 mmol/L (135-145); Triglycerides 145 mg/dL (<150)
[2025-01-15 14:06] LABS: Creatinine Urine 145.24 mg/dL; Microalbum/Creatinine Ratio Ur 17.2 ug/mg cr (<30)
== END 2025-01-15 10:53 | disposition home or self-care (01) ==
LOC: HO.HHCL 10:52
PROVIDERS: Visit Provider Nurse Practitioner Primary Care
DX: I10 Essential (primary) hypertension (principal); E78.1 Pure hyperglyceridemia
CPT/HCPCS: 36415; 80048; 80061; 82043; 82570

== ENCOUNTER 2025-02-01 08:50 | Outpatient (REF) | payer OTHER, SELFPAY ==
--- OUTSIDE RECORDS SUMMARY | 2025-02-01 09:19 | XMS_ITS | Clinical Summary ---
Author Organization [facility] ity Address [address] [place] [address] Care Team Providers Care Slab Tripper Name Role Phone Paty Negron MD Primary Care Provider Medical History Medical History Date Comments Essential [...] age to complete this topic Care Teams Slab Tripper Relationship Specialty Start Date End Date Paty Negron MD [address] [place] [phone] PCP - General 04/05/22
== END 2025-02-01 08:51 | disposition home or self-care (01) ==
LOC: HO.SH 08:50
PROVIDERS: Visit Provider Nurse Practitioner Primary Care
DX: Z01.118 Encounter for examination of ears and hearing with other abnormal findings (principal); H90.3 Sensorineural hearing loss, bilateral
CPT/HCPCS: 92557; 92567

== ENCOUNTER → 2025-05-03 14:45 | Outpatient (BNV) | payer OTHER, SELFPAY | PROVIDERS: PCP Nurse Practitioner Primary Care; Visit Provider Radiology Body Imaging | DX: Z12.31 Encounter for screening mammogram for malignant neoplasm of breast (principal) | CPT/HCPCS: 77063; 77067 ==

== ENCOUNTER 2025-05-03 14:55 | Outpatient (REF) | payer OTHER, SELFPAY ==
--- NOTE | ~2025-05-03 | MM_ITS ---
EXAMINATION: MM SCREENING DIGITAL BREAST TOMOSYNTHESIS, BILATERAL CLINICAL INFORMATION: Screening. Asymptomatic. COMPARISON: February 21, 2024 and February 05, 2023 TECHNIQUE: Digital breast tomosynthesis is performed in mediolateral oblique and craniocaudal views along with computer-aided detection (CAD). Synthesized 2D images are generated from the tomosynthesis. FINDINGS: BREAST COMPOSITION: There are scattered areas of fibroglandular density. BILATERAL BREASTS: No significant masses, suspicious calcifications or other abnormalities are seen in either breast. MM/MM tomosynthesis screening BI IMPRESSION: BILATERAL BREASTS: Negative, no mammographic evidence of malignancy. Normal interval follow-up is recommended in 12 months. ASSESSMENT: BI-RADS: Category 1: Negative RECOMMENDATION: Routine annual mammography screening. FOLLOW-UP: 1 year F/U This examination should not preclude the clinical evaluation of a suspicious palpable abnormality. This patient's information was entered into a reminder system with a target due date for their next mammogram. Electronically signed by: Sharona Blake MD 05/04/2025 07:25 PM EDT
== END 2025-05-03 14:56 | disposition home or self-care (01) ==
LOC: HO.MAMMO 14:55
PROVIDERS: PCP Nurse Practitioner Primary Care; Visit Provider Nurse Practitioner Primary Care
DX: Z12.31 Encounter for screening mammogram for malignant neoplasm of breast (principal)
CPT/HCPCS: 77063; 77067

== ENCOUNTER 2025-06-30 09:51 | Outpatient (AMB) | payer OTHER, SELFPAY ==
--- NOTE | 2025-06-30 09:53 | A.OFFVIS_ITS ---
Vital Signs 06/30/25 09:55 Height 5 ft 2 in Weight 225 lb 8.526 oz BMI 41.2 BP 138/75 Blood Pressure Location Lt brachial Position Sitting Pulse 70 Intake Visit Reasons: Colonoscopy screening Intake Note: New patient in office today for colonoscopy screening. CC: Patient reports constipation and occasional abd bloating. 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 Last visit with Shivani Somers NP 05/16/2021 for constipation Patient presents with intermittent upper abdominal pain described as a burning sensation localized to the epigastric area, occasionally radiating near the ribs. Symptoms have been ongoing for at least 6 months, with variable frequency?some mornings are symptom-free, while other days symptoms occur before any food intake. Pain is usually relieved following a bowel movement, or with intake of juice, sweet foods, or banana. No regurgitation, emesis, or dysphagia reported. Appetite is reduced in the morning but returns by midday and dinner. No GI bleeding, recent weight changes, or alarming features noted. Reports daily ibuprofen use for chronic back pain. Denies known GI malignancy, history of H. pylori testing, or similar symptoms in family. Non-GI comorbidities include HTN managed with losartan. Patient denies: fever/chills, n/v, regurgitation, dysphasia, unintentional wt loss, ab pain or melena/hematochezia. Social hx: -denies ETOH use -denies recreational drug use -non-smoker - family hx as below -denies personal hx of CA -denies significant cardiopulmonary history -tolerated anesthesia in the past without difficulty. [facility] Medical History (Updated 06/30/25 @ 13:22 by Greta Roca CNP) Epigastric pain Constipation Colon cancer screening Elevated LFTs Internal hemorrhoid Diverticulosis PONV (postoperative nausea and vomiting) Pruritus ani Lumbago Sciatica, right side Surgical History (Updated 06/30/25 @ 09:58 by DANISH Mac) H/O colonoscopy Hx of cholecystectomy Family History Father No problems noted. Mother Alive and well Social History Household Members: Spouse and Children Alcohol intake: never Current occupational status: unemployed Current occupation: RIGHT HANDED Review of Systems Const Reports as per HPI ENT Reports as per HPI Card Reports as per HPI Resp Reports as per HPI GI Reports as per HPI Reports as per HPI Physical Exam Vital Signs: Last Vital Signs Pulse 70 06/30/25 09:55 BP 138/75 06/30/25 09:55 BMI result Body Mass Index 41.2 Const General: healthy appearing, no acute distress and well developed Nutritional Appearance: obese Orientation/consciousness: patient oriented x3 HEENT Head: Yes normal to inspection, Yes normocephalic and Yes atraumatic Face and sinus: Yes normal facial exam Eyes General: appearance normal, both eyes and all related structures Neck Neck: Yes normal visual inspection Resp Effort & Inspection: normal respiratory effort, able to speak in complete sentences, no tracheal deviation and symmetric chest movement Cardio Jugular venous distension: no JVD GI Inspection: Yes normal to inspection, No distended and Yes obesity Palpation (GI): Soft to palpation, not firm, Tenderness to palpation present (G I) in the RUQ and No hepatosplenomegaly present Auscultation: normoactive bowel sounds Neuro General: patient oriented x3 Gait exam (Neuro): Normal gait present Psych Appearance: grossly normal Mental Status: mental status grossly normal Speech and movement: Normal speech and movement present Affect: normal affect Attitude: cooperative Thought process: Normal thought process present Thought content: Normal thought content present Insight: Good insight present (Psych) Judgement: Good judgement present (Psych) Results Reviewed Results Reviewed: Operative Note Date of Service: 11/08/20 Narrative: Pre-op diagnosis: Colon cancer screening Post-op diagnosis: other (Diverticulosis, hemorrhoids) Procedure: COLONOSCOPY TILL CECUM Consent: Indications for the procedure and potential complications of bleeding, perforation, reaction to medications and missed diagnosis were discussed with the patient and informed consent was obtained. Instrument: Olympus PCF H 190 L variable stiffness pediatric colonoscope Monitoring: Vital signs and clinical assessment, intermittent blood pressure monitoring, continuous EKG monitoring, Pulse oximetry and Carbon Dioxide monitoring were done throughout the procedure. Colon withdrawl time was 22 minutes. Procedure: The patient was placed in the left lateral decubitis position and pre-procedure medications were administered. After a digital rectal examination of the ano-rectum, the video colonoscope was inserted into the rectum and advanced through the colon to the cecum. The colonoscope was slowly withdrawn in a retrograde panoramic fashion and the colon mucosa was carefully examined including a retroflexed view of the rectum. Findings and interventions are described below. Procedure Difficulty: Without difficulty Findings: Terminal Ileum: Not evaluated Cecum: Normal Ascending Colon: Normal Transverse Colon: Normal Descending Colon: Normal Sigmoid Colon: Moderate diverticulosis Rectum: Normal Ano-rectum: Moderate internal hemorrhoids Colon preparation: Good after copious irrigation and fair in some areas of the colon (pt took 75 to 80% of the prep) Impression and Post Procedure Diagnosis: Colonoscopy Findings: No polyps were detected Moderate diverticulosis seen in the sigmoid colon Moderate hemorrhoids on retroflexed exam. Prep was good after copious irrigation and fair in some areas of the colon (pt took 75 to 80% of the prep) Plan: Await pathology results Patient has an appointment on 11/22/20 in the GI [facility] with Jennifer Somers FNP- . Can consider checking a stool FIT test every 1-2 yrs for colon cancer screening versus repeat Colonoscopy in 1-2 years due to fair prep in some areas of the colon Above findings were reviewed with the patient and diverticulosis handout was given in the discharge area Surgeon: Amy Luna MD Assessment & Plan Assessment & Plan (1) Colon cancer screening: Comment: 11/08/20 colonoscopy complete with fair to good prep (only 75-80% of prep complete)- Moderate diverticulosis (Sigmoid), Moderate internal hemorrhoids. Recommendations to consider fit testing for CRC Screening due to fair prep Code(s): Z12.11 - Encounter for screening for malignant neoplasm of colon Category: Medical Plan: Previous colonoscopy (10/2020) with inadequate bowel preparation. CRC screening incomplete; direct visualization preferred. Discussed stool based CRC screening, pt opted to proceed with colonoscopy Additional Testing: - Repeat colonoscopy with extended bowel prep (clear liquids day before, Miralax + Gatorade, and extra laxative tablets starting five days prior) Medication Management: - As above; adherence to prescribed bowel prep regimen Lifestyle Recommendations: - Strict adherence to pre-colonoscopy diet/prep (see instruction packet and video) Follow-Up: - Schedule colonoscopy in new year; office to contact for appointment (2) Constipation: Code(s): K59.00 - Constipation, unspecified Category: Medical Qualifiers: Constipation type: unspecified constipation type Qualified Code(s): K59.00 - Constipation, unspecified Plan: Improvement with the initiation of magnesium oxide. Relief of abdominal pain and burning after bowel movement suggests functional component; history of incomplete colonoscopy prep and need for extended bowel regimen. Additional Testing: - None at this time; monitor response to bowel regimen Medication Management: - Extended bowel prep regimen as outlined for colonoscopy (Miralax, Gatorade, laxative tablets) Lifestyle Recommendations: - Maintain adequate hydration - Increase dietary fiber as tolerated - Encourage regular physical activity Follow-Up: - Reassess bowel habits at next visit or sooner if symptoms worsen (3) Epigastric pain: Code(s): R10.13 - Epigastric pain Category: Medical Plan: Episodic, burning epigastric pain relieved by food/BM, worsened with NSAIDs. No GI bleed, weight loss, or dysphagia. Daily ibuprofen use is a clear risk for gastritis/ulcer. s/p cholecystectomy Additional Testing: - H. pylori breath test (scheduled during fasting state) - Comprehensive labs (to assess liver function as ordered) Medication Management: - Recommend discontinuation or reduction of ibuprofen; consider Tylenol (acetaminophen) or alternative for pain if medically safe Lifestyle Recommendations: - Take any NSAIDs only with food if necessary - Avoid known triggers; maintain regular meals as tolerated Follow-Up: - treat if H. pylori positive; reassess symptoms and management effectiveness; further plans based on test results (4) Elevated LFTs: Code(s): R79.89 - Other specified abnormal findings of blood chemistry Category: Medical Plan: Mildly transaminitis on 08/26/2020 labs. DDX: postprandial elevation, metabolic induced ( risk factors of obesity, HLD, ? IR) Additional testing: Repeat fasting Lifestyle modificaitons: Well balance diet, adeuate hydration. Plan Follow-up: Next available appt with RN/MA for H. pylori testing Provider follow up after endoscopy or sooner as needed Time: I spent a total of 45 minutes on the date of encounter which includes: Preparing to see the patient (reviewed previous documentation, test results and medical history) Performing a medically appropriate exam and/or evaluation Ordering medications, tests, and procedures Documenting clinical information in the health record Orders: Orders H Pylori Breath Test Today Prothrombin Time INR Today R79.89 - Other specified abnormal findings of blood chemistry Ferritin Today R79.89 - Other specified abnormal findings of blood chemistry Transglutaminase IgA Today R79.89 - Other specified abnormal findings of blood chemistry Lipase Today R79.89 - Other specified abnormal findings of blood chemistry Hemoglobin A1c Today R79.89 - Other specified abnormal findings of blood chemistry Referrals GI Procedure Notification K21.9 - Gastro-esophageal reflux disease without esophagitis, R10.13 - Epigastric pain, Z12.11 - Encounter for screening for malignant neoplasm of colon Medications: New bisacodyl take four tablets once day of colonoscopy prep 20 mg (4 x 5 mg) PO ONCE 4 tabs 0RF bisacodyl Take two tablets at bedtime, starting five nights before colonoscopy 10 mg (2 x 5 mg) PO BEDTIME 10 tabs 0RF polyethylene glycol 3350 (Miralax) per colonoscopy prep instructions 238 grams PO ONCE 238 grams 0RF Coding Level of Care Code New Pt New Pt Level 5 (49951) Patient Type New Diagnoses Colon cancer screening Z12.11 Constipation, unspecified constipation type K59.00 Constipation type: unspecified constipation type Epigastric pain R10.13 Elevated LFTs R79.89
[2025-06-30 09:55] VITALS: BP 138/75; PULSE 70; BMI 41.2
--- OUTSIDE RECORDS SUMMARY | 2025-06-30 18:20 | XMS_ITS | Clinical Summary ---
Author Organization [employer] [facility] ity Address [address] [place] [address] Care Team Providers Care Fibre [employer]ics Jointer Name Role Phone Paty Negron MD Primary Care Provider [phone] Medical History Medical History Date Comments Essential [...] 2018 Zoster Vaccines (1 of 2) 2018 Depression Screening 08/12/2024 COVID-19 Vaccine (3 - 2024- season) 2025 01/27/2021, 01/01/2021 Influenza Vaccine (#1) 2025 , 05/19/2020, 10/16/2019, Additional history exists DTaP,Tdap,and Td Vaccines (2 - Td or Tdap) 10/15/2029 10/16/2019 RSV Immunization Adult Patients (1 - 1-dose 75+ series) 2043 HIB Vaccines Aged Out No longer eligi [...] age to complete this topic Care Teams [employer] Jointer Relationship Specialty Start Date End Date Paty Negron MD [address] [place] [phone] PCP - General 04/05/22
== END 2025-06-30 11:32 | disposition home or self-care (01) ==
LOC: HO.HGI 09:52
PROVIDERS: Visit Provider Nurse Practitioner Family
DX: Z01.818 Encounter for other preprocedural examination (principal); Z12.11 Encounter for screening for malignant neoplasm of colon; K59.00 Constipation, unspecified; R10.13 Epigastric pain; R79.89 Other specified abnormal findings of blood chemistry
CPT/HCPCS: 99204

== ENCOUNTER → 2025-06-30 09:51 | Outpatient (BNVA) | payer OTHER, SELFPAY | PROVIDERS: Visit Provider Nurse Practitioner Family | DX: Z01.818 Encounter for other preprocedural examination (principal); K59.00 Constipation, unspecified; R10.13 Epigastric pain; R79.89 Other specified abnormal findings of blood chemistry | CPT/HCPCS: 99202 ==

== ENCOUNTER 2025-07-01 10:04 | Outpatient (REF) | payer OTHER, SELFPAY | END 2025-07-01 10:05 | disposition home or self-care (01) | LOC: HO.LNP 10:04 | PROVIDERS: PCP Nurse Practitioner Primary Care; Visit Provider Nurse Practitioner Family | DX: Z11.0 Encounter for screening for intestinal infectious diseases (principal) | CPT/HCPCS: 83013; 99211 ==

== ENCOUNTER 2025-07-01 10:04 | Outpatient (AMB) | payer OTHER, SELFPAY ==
--- NOTE | 2025-07-01 10:09 | AM.OFFVISNUR ---
Intake Visit Reasons: H-Pylori Intake Note: Patient presents for collection of?H Pylori?breath test. Patient has been fasting for 1 hour (nothing to eat, drink, no chewing gum or smoking) has not taken any antacid medication for at least 2 weeks and has no allergies to artificial sweeteners.?? 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 Patient has been fasting for 1 hour (nothing to eat, drink, no chewing gum or smoking) has not taken any antacid medication for at least 2 weeks and has no allergies to artificial sweeteners.?? Assessment & Plan Assessment & Plan (1) Epigastric pain: Code(s): R10.13 - Epigastric pain Category: Medical Plan Patient presents for collection of?H Pylori?breath test. Patient has been fasting for 1 hour (nothing to eat, drink, no chewing gum or smoking) has not taken any antacid medication for at least 2 weeks and has no allergies to artificial sweeteners.???This test checks for an overgrowth of bacteria in your stomach. We all have bacteria but some may have more than others. It is treatable. if the test comes back negative there is nothing else to do. If the test result is positive we will treat you with 2 antibiotics and a medication to decrease the acid in your stomach (PPI) for 2 weeks. Two weeks after you have completed the treatment we will retest you to make sure the overgrowth has resolved. Patient Instructions: Process for specimen collection and reason for testing was explained to the patient. Specimen collection. Patient instructed to take a deep breath and then exhale into the blue bag, filling it up as much as possible. Patient instructed to drink a mixture of water and the artificial sweetener with a straw. A 15 minute wait period was observed. Patient instructed to take a deep breath and then exhale into the pink bag, filling it up as much as possible.?? Coding Level of Care Code Established Pt Est Pt Level 1 (36869) Patient Type Established Diagnoses Epigastric pain R10.13
--- OUTSIDE RECORDS SUMMARY | 2025-07-01 14:45 | XMS_ITS | Clinical Summary ---
Author Organization [employer] [facility] ity Address [address] [place] [address] Care Team Providers Care Director Of Special Events Name Role Phone Paty Negron MD Primary Care Provider [phone] Medical History Medical History Date Comments Essential [...] age to complete this topic Care Teams Director Of Special Events Relationship Specialty Start Date End Date Paty Negron MD [address] [place] [phone] PCP - General 04/05/22
== END 2025-07-01 11:57 | disposition home or self-care (01) ==
LOC: HO.HGI 10:04
PROVIDERS: PCP Nurse Practitioner Primary Care; Visit Provider Nurse Practitioner Family
DX: R10.13 Epigastric pain (principal)

== ENCOUNTER 2025-07-20 18:03 | Outpatient (REF) | payer OTHER, SELFPAY ==
--- OUTSIDE RECORDS SUMMARY | 2025-07-20 11:30 | XMS_ITS | Encounter Summary ---
Author Organization [employer] Address [address] [facility] [address] [place] [address] Care Team Providers Care Integrated Marketing Manager Name Role Phone Bernadette Lubin Primary Care Provider [phone] Reason for Referral * (Routine) - Authorized Specialty Diagnoses / Procedures Referred By Contac t Referred To Contact Diagnoses Encounter for immunization Procedures FLU VACCINE TRIVALENT [id number] (Fluarix) 19 yrs + Bernadette Lubin ANP [address] [place] [address] Phone: tel: fax: Referral ID Status Reason Start Date Expiration Date V isits Requested Visits Authorized [id number] Authorized 07/20/2025 07/20/2026 1 1 * Consultation (Urgent) - Authorized Specialty Diagnoses / Procedures Referred By Contac t Referred To Contact Audiology Diagnoses Bilateral hearing loss, unspecified hearing loss type Bernadette Lubin ANP [address] [place] [address] Phone: tel: fax: [facility] [place] Audiology [address] [place], [place] Phone: tel: fax: Referral ID Status Reason Start Date Expiration Date Visits Requested Visits Authorized [id number] Authorized Specialty Services Required 07/20/2025 07/20/2026 1 1 Reason for Visit * Reason Comments Follow-up Encounter Details Date Type Department Care Team ([facility] Contact Info) Description 07/20/2025 11:30 AM EST Office Visit [facility] [address] [place] [address] Bernadette Lubin ANP [address] [place] [address] Essential hypertension (Primary Dx); High triglycerides; Perioral numbness; Tongue burning sensation; Dysuria; Bilateral hearing loss, unspecified hearing loss type; Encounter for immunization; Wheezing Social History Tobacco Use Types Packs/Day Years Used Date Smoking Tobacco: Never Passive Smoke Exposure: Never Smokeless Tobacco: Never Alcohol Use Standard Drinks/Week Comments Not Currently 0 (1 standard drink = 0.6 oz pur e alcohol) Alcohol Answer Date Recorded How often do you have a drink containing alcohol ? 0 07/20/2025 How many drinks containing a lcohol do you have on a typical day when you are drinking? 0 07/20/2025 How often do you have six or more drinks on one occasion? 0 07/20/2025 Depression Answer Date Recorded Patient Health Questionnaire-9 Score 0 01/15/2025 Patient Health Questionnaire-9 Score 0 01/15/2025 Last PHQ-9: Questionnaire Data Not on file 0 01/15/2025 Housing Stability Answer Date Recorded What is your housing situation today? I have abilio kwok 01/08/[address] you li ve. Do you have problems with any of the following? None of the above 01/08/2025 Food Insecurity Answer Date Recorded Within the past 12 months, y ou worried that your food would run out before you got money to buy more: Never True 01/08/2025 Within the past 12 months,th e food you bought just didn't last and you didn't have enough money to get more: Never True Transportation Answer Date Recorded In the past 12 months, has l ack of transportation kept you from medical appts, meetings, work or from getting things needed for daily living? No 01/08/2025 Utilities Answer Date Recorded In the past 12 months, has t he electric, gas, oil or water company threatened to shut off services in your home? No 01/08/2025 Depression Answer Date Recorded Patient Health Questionnaire-2 Score 0 01/15/2025 Internet Access Answer Date Recorded Internet Access Q1 Yes 01/08/2025 Internet Access Q2 Not on file 01/08/2025 Comments No Sex and Gender Information Value Date Recorded Sex Assigned at Female 06/11/2022 10:36 AM EDT Legal Sex Female 10:36 AM EDT Gender Identity Female 06/11/2022 10:36 AM EDT Sexual Orientation Straight 06/11/2022 10 :36 AM EDT documented as of this encounter Last Filed Vital Signs Vital Sign Reading Time Taken Comments Blood Pressure 132/90 07/20/2025 11:23 AM EST Pulse 76 07/20/2025 11:23 AM EST Temperature 36.5 C (97.7 F) 07/20/2025 11:23 AM EST Respiratory Rate 16 07/20/2025 11:23 AM EST Oxygen Saturation 98% 07/20/2025 11:23 AM EST Inhaled Oxygen Concentration - - Weight 102 kg (225 lb 12.8 oz) 07/20/2025 11:23 AM EST Height 154.9 cm (5' 1 ) 07/20/2025 11:23 AM EST Body Mass Index 42.66 07/20/2025 11:23 AM EST documented in this encounter Patient Instructions * Patient Instructions* MONTSE Mccann - 07/20/2025 11:30 AM EST Based on our discussion, I have outlined the following instructions for you: - Increase losartan dose to 50mg once daily - Continue taking your current antibiotics from gastroenterology as you have been. - Take diflucan 150mg tablet once today and then repeat 2nd dose after you have finished antibiotics from gastroenterology. If your vaginal and oral symptoms do not improve by next Saturday, please call us. If your symptoms worsen, also please call us. - Please get labs done - You will have tests done with a vaginal swab and a urine sample to check for infection. - take albuterol as needed 2 puffs every 4-6 hours for shortness of breath or wheezing. Call clinicif you are feeling worse. Con base en nuestra conversaci??n, le he dado las siguientes instrucciones: - Aumente la dosis de losart??n a 50 mg obi vez al d??a. - Contin??e tomando ana laura antibi??ticos de gastroenterolog??a justin hasta ahora. - [place] obi tableta de Diflucan de 150 mg obi vez hoy y repita la segunda dosis despu??s de terminarlos antibi??ticos de gastroenterolog??a. Si ana laura s??ntomas vaginales y orales no mejoran para el pr??ximo cathie, ll??menos. Si ana laura s??ntomas empeoran, tambi??n ll??menos. - Realice an??lisis de laboratorio. - Se le realizar??n an??lisis con un frotis vaginal y obi muestra de orina para detectar obi infecci??n. - Use el inhalador de albuterol seg??n sea necesario cada 4 a 6 horas (2 inhalaciones) para la dificultad para respirar o las sibilancias. Llame a la cl??harrison si se siente peor o presenta nuevos s??ntomas justin fiebre o escalofr??os. Cassie nuevamente por hi visita. Esperamos poder apoyarla en hi arlin hacia obi mejor jitendra. Thank you again for your visit, and we look forward to supporting you in your journey to better health. documented in this encounter Progress Notes * MONTSE Mccann - 07/20/2025 11:30 AM EST SUBJECTIVE: Theodora Doty is a 54 y.o. year old female who presents for follow up. PMH hypertension, h. Pylori 09/06/24, Cervical radiculopathy, Sciatica of right side. Acute Concerns: Wheezing at night for last few days. Chest feels tight. Feels congested. No sick contacts. No fever/chills. Non-smoker. No h/o asthma. Taking antibiotics for h. Pylori. She is taking all meds as Rx'd by GI. She reports mild improvement in GERD symptoms. Since startig antibiotics has had symptoms and oral burning/tongue numbness. Also w/ perioral numbness. Genitourinary symptoms - Burning with urination prior to visit - Reports foul-smelling urine prior to visit - Currently taking antibiotics (name shown on bottle) for presumed bacterial infection - reports good water intake 4. Oral symptoms - Burning sensation around lips and inside mouth prior to visit - Toothpaste feels ???too strong?? due to oral burning - Describes tongue feeling ???asleep?? prior to visit 5. Hypertension Reports home BP above goal 130/90's usually. Taking losartan 25mg as Rx'd. Follows lost salt. Kelly AGUILERA provided Latvian interpretation. Social History Social History Narrative Not on file Problem List[1] Surgical History[2] Family History[3] Review of Systems Constitutional: Negative for chills and fever. HENT: Negative for sore throat. Respiratory: Negative for cough and shortness of breath. Cardiovascular: Negative for chest pain. Gastrointestinal: Negative for constipation and diarrhea. Endocrine: Negative for polydipsia, polyphagia and polyuria. Genitourinary: Negative for dysuria. 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 Appearance: Normal appearance. She is obese. She is not ill-appearing. HENT: Head: Normocephalic and atraumatic. Nose: No congestion. Mouth/Throat: Mouth: Mucous membranes are moist. Pharynx: No oropharyngeal exudate or posterior oropharyngeal erythema. Eyes: General: No scleral icterus. Extraocular Movements: Extraocular movements intact. Pupils: Pupils are equal, round, and reactive to light. Cardiovascular: Rate and Rhythm: Normal rate and regular rhythm. Pulmonary: Effort: Pulmonary effort is normal. No accessory muscle usage or respiratory distress. Breath sounds: Wheezing present. Musculoskeletal: Right lower leg: No edema. Left lower leg: No edema. Skin: General: Skin is warm and dry. Neurological: Mental Status: She is alert and oriented to person, place, and time. Psychiatric: Mood and Affect: Mood normal. Behavior: Behavior normal. ASSESSMENT/PLAN Theodora was seen today for follow-up. Diagnoses and all orders for this visit: Essential hypertension (Primary) Above goal </= 120/80 Increase losartan to 50mg once daily - losartan (Cozaar) 50 MG tablet; Take 1 tablet (50 mg) by mouth Once per day. High triglycerides Cont omega3 Recommend: Daily exercise at least 30min, moderate intensity, incorporating both cardiovascular exercise and weight training. Adequate protein intake, Recommended at least 20 g per meal of protein to assist with satiety. limit soda and sugary beverage consumption. Perioral numbness R/o hypocalcemia, b12 def - Basic Metabolic Panel; Future - Vitamin B12; Future Tongue burning sensation No oral lesions, but cont to suspect possible candidal infx given recent antibiotics use and vaginal symptoms as well. Will check A1c and ca, vit b12. Treat w/ clotrimazole troches pending labs and diflucan treatment. Dysuria Test for BV/yeast, pt denies discharge or rash, unable to urinate here, advised to get done at lab,diflucan empirically. - Bacterial Vaginosis Panel - Cancel: POCT Urinalysis - Urinalysis, Complete, with Reflex to Culture - fluconazole (Diflucan) 150 MG tablet; Take 1 tab now and repeat in 3 days Bilateral hearing loss, unspecified hearing loss type - Referral to Audiology; Future Encounter for immunization - FLU VACCINE TRIVALENT [id number] (Fluarix) 19 yrs + Wheezing URI vs bronchitis vs new onset RAD or asthma, pt w/o previous h/o asthma, reports symptoms present for 1 mo, +SOB, wheezing. If not improved after prednisone burst and prn albuterol, will check chestXR. Non-smoker. Denies use of bleach or other common resp trigger in house cleaning. Advised pt to call w worsening or not improving symptoms. Neb here w/ minimal improvement in symptoms. Will send prednisone burst. - albuterol (2.5 MG/3ML) 0.083% nebulizer solution 2.5 mg - albuterol 108 (90 Base) MCG/ACT inhaler; Take 2 puffs every 4-6 hours as needed for shortness of breath or wheezing This note was drafted using Ambient (AI) technology. The patient/patient's guardian has been informed and has consented to the use of this technology: Yes Based on our discussion, I have outlined the following instructions for you: - Increase losartan dose to 50mg once daily - Continue taking your current antibiotics from gastroenterology as you have been. - Take diflucan 150mg tablet once today and then repeat 2nd dose after you have finished antibiotics from gastroenterology. If your vaginal and oral symptoms do not improve by next Saturday, please call us. If your symptoms worsen, also please call us. - Please get labs done - You will have tests done with a vaginal swab and a urine sample to check for infection. - take albuterol as needed 2 puffs every 4-6 hours for shortness of breath or wheezing. Call clinicif you are feeling worse. Follow Up: 6 weeks or sooner prn Medications Ordered Prior to Encounter[4] [1] Patient Active Problem List Diagnosis Obesity (BMI 30-39.9) Cervical radiculopathy Essential hypertension Chronic constipation Left cervical radiculopathy Dental abscess Screening for malignant neoplasm of colon Chronic pain of left knee High triglycerides [2] Past Surgical History: Procedure Laterality Date CHOLECYSTECTOMY [3] No family history on file. [4] Current Outpatient Medications on File Prior to Visit Medication Sig Dispense Refill acetaminophen (Tylenol 8 Hour) 650 MG ER tablet TAKE 2 TABLETS BY MOUTH EVERY 8 HOURS NEEDED SWALLOW WHOLE WITH WATER DO NOT BREAK, CRUSH, DISSOLVE OR CHEW 60 tablet 1 Diclofenac Sodium 1 % gel APPLY 1 GRAMS TO AFFECTED AREA UP TO FOUR TIMES DAILY NEEDED FOR PAIN (FRENCH LABEL) 100 g 1 hydrocortisone (Anusol-HC) 2.5 % rectal cream INSERT 1 APPLICATION RECTALLY TWICE DAILY [id number] g 0 Lidoderm 5 % patch APPLY 1 PATCH TOPICALLY TO SKIN, LEAVE ON FOR 12 HOURS AND OFF FOR 12 HOURS DIRECTED 28 patch 2 methylcellulose oral powder 1 TBL once daily in water, increase to 1 TBL up to TID 454 g 2 olopatadine (Pataday) 0.2 % ophthalmic solution Administer 1 drop into both eyes Once per day. 2.5 mL 0 omega-3 acid ethyl esters (Lovaza) 1 g capsule Take 2 capsules (2 g) by mouth 2 times daily. 360 capsule 0 polyvinyl alcohol (Liquifilm Tears) 1.4 % ophthalmic solution Administer 1 drop into both eyes if needed for dry eyes. 15 mL 3 [DISCONTINUED] losartan (Cozaar) 25 MG tablet Take 1 tablet (25 mg) by mouth Once per day. 90 tablet 0 No current facility-administered medications on file prior to visit. documented in this encounter Plan of Treatment Upcoming Encounters Date Type Department Care Team (Late st Contact Info) Description 09/17/2025 2:15 PM EST Office Visit [facility] [address] [place] [address] Bernadette Lubin ANP [address] [place] [address] Scheduled Orders Name Type Priority Associated Diagnoses Orde r Schedule Bacterial Vaginosis Panel Microbiology Routine Dysuria Ordered: 07/20/2025 Urinalysis, Complete, with Reflex to Culture Lab Routine Dysuria Ordered: 07/20/2025 Basic Metabolic Panel Lab Routine Perioral numbness Expected: 07/20/2025 (Approximate), Expires: 07/20/2026 Vitamin B12 Lab Routine Perioral numbness Expected: 07/20/2025 (Approximate), Expires: 07/20/2026 Hemoglobin A1c Lab Routine Dysuria Expected: 07/20/2025 (Approximate), Expires: 07/20/2026 Scheduled Referrals Name Type Priority Associated Diagnoses Orde r Schedule Referral to Audiology Outpatient Referral Urgent Bilateral hearing loss, unspecified hearing loss type Expected: 07/20/2025 (Approximate), Expires: 07/20/2026 documented as of this encounter Visit Diagnoses Diagnosis Essential hypertension- Primary Unspecified essential hypertension High triglycerides Unspecified disorder of lipoid metabolism Perioral numbness Disturbance of skin sensation Tongue burning sensation Glossodynia Dysuria Bilateral hearing loss, unspecified hearing loss type Encounter for immunization Wheezing documented in this encounter Administered Medications Inactive Administered Medications - up to 3 most recent administrations Medication Order MAR Action Action Date Dose Rate Site albuterol (2.5 MG/3ML) 0.083% nebulizer solution 2.5 mg 2.5 mg, Nebulization, Once, On Sat07/20/25 at 1215, For 1 doseIndications:Wheezing Given 07/20/2025 12:15 PM EST 2.5 mg documented in this encounter Additional Health Concerns Assessment Noted Time PHQ-9 Depression Total Score: 0 01/16/20 9:31 AM EDT documented as of this encounter Care Teams Integrated Marketing Manager Relationship Specialty Start Date End Date Bernadette Lubin ANP [address] [place] [phone] PCP - General Family Medicine 10/16/19 documented as of this encounter
--- OUTSIDE RECORDS SUMMARY | 2025-07-20 23:09 | XMS_ITS | Clinical Summary ---
Author Organization [employer] [facility] ity Address [address] [place] [address] Care Team Providers Care Reading Assistant Name Role Phone Paty Negron MD Primary Care Provider [phone] Medical History Medical History Date Comments Essential hypertension DX:Essent ial hypertension Depressive disorder DX:Depressiv e disorder Social History Tobacco Use Types Packs/Day Years Used Date Smoking Tobacco: Never Smokeless Tobacco: Never Comments Unknown Sex and Gender Information Value Date Recorded Sex Assigned at Not on file Legal Sex Female 11:07 AM EST Gender Identity Not on file Sexual Orientation Not on file Plan of Treatment Health Maintenance Due Date [...] age to complete this topic Care Teams Reading Assistant Relationship Specialty Start Date End Date Paty Negron MD [address] [place] [phone] PCP - General 04/05/22
--- OUTSIDE RECORDS SUMMARY | 2025-07-20 23:09 | XMS_ITS | Encounter Summary ---
Author Organization [employer] Address [address] 7[address] [place] [address] Care Team Providers Care Aviation Project Manager Name Role Phone Amee Bernadette WILLARD Primary Care Provider [phone] Encounter Details Date Type Department Care Team (Latest Contact Info) Description 07/20/2025 Travel Social History Tobacco Use Types Packs/Day Years [...] AM EDT documented as of this encounter Plan of Treatment Upcoming Encounters Date Type Department Care Team (Late st Contact Info) Description 09/17/2025 2:15 PM EST Office Visit [facility] MEDICINE [address] [place] [phone] Bernadette Lubin ANP [address] [place] [address] documented as of this encounter Visit Diagnoses Not on filedocumented in this encounter Additional Health Concerns Assessment Noted Time PHQ-9 Depression Total Score: 0 01/16/20 25 9:31 AM EDT documented as of this encounter Care Teams Aviation Project Manager Relationship Specialty Start Date End Date Bernadette Lubin ANP [address] [place] [phone] PCP - General Family Medicine 10/16/19 documented as of this encounter
--- OUTSIDE RECORDS SUMMARY | 2025-07-20 23:09 | XMS_ITS | Clinical Summary ---
Author Organization [employer] Address [address] [facility] 7t [place] [address] Care Team Providers Care Cook Fish Eggs Name Role Phone Rosie Jackson Primary Care Provider [phone] Allergies No known active allergies Medications Lidoderm 5 % patchIndication s:Radicular leg pain APPLY 1 PATCH TOPICALLY TO SKIN, LEAVE ON FOR 12 HOURS AND OFF FOR 12 HOURS DIRECTED 28 patch 2 12/28/19 23 Active acetaminophen (Tylenol 8 Hour) 650 MG ER tabletIndicatio ns:Radicular leg pain TAKE 2 TABLETS BY MOUTH EVERY 8 HOURS NEEDED SWALLOW WHOLE WITH WATER DO NOT BREAK, CRUSH, DISSOLVE OR CHEW 60 tablet 1 06/24/20 23 Active methylcellulose oral powderIndicatio ns:Chronic constipation 1 TBL once daily in water, increase to 1 TBL up to TID 454 g 2 12/05/19 24 Active hydrocortisone (Anusol-HC) 2.5 % rectal creamIndication s:Anal itching INSERT 1 APPLICATION RECTALLY TWICE DAILY DIRECTED 30 g 09/02/19 25 Active olopatadine (Pataday) 0.2 % ophthalmic solution Administer 1 drop into both eyes Once per day. 2.5 mL 12/05/19 25 Active Diclofenac Sodium 1 % gelIndications: Chronic pain of left knee APPLY 1 GRAMS TO AFFECTED AREA UP TO FOUR TIMES DAILY NEEDED FOR PAIN ([place] LABEL) 100 g 1 01/16/20 25 Active polyvinyl alcohol (Liquifilm Tears) 1.4 % ophthalmic solutionIndicat ions:Dry eyes, bilateral Administer 1 drop into both eyes if needed for dry eyes. 15 mL 3 05/07/20 25 Active omega-3 acid ethyl esters (Lovaza) 1 g capsuleIndicati ons:Hypertrigly ceridemia Take 2 capsules (2 g) by mouth 2 times daily. 360 capsule 05/27/202025 Active losartan (Cozaar) 50 MG tabletIndicatio ns:Essential hypertension Take 1 tablet (50 mg) by mouth Once per day. 90 tablet 3 07/20/20 Active fluconazole (Diflucan) 150 MG tabletIndicatio ns:Dysuria Take 1 tab now and repeat in 3 days 2 tablet 07/20/20 Active albuterol 108 (90 Base) MCG/ACT inhalerIndicati ons:Wheezing Take 2 puffs every 4-6 hours as needed for shortness of breath or wheezing 6.7 g 1 07/20/20 Active predniSONE (Deltasone) 20 MG tabletIndicatio ns:Wheezing Take 2 tablets (40 mg) by mouth Once per day for 5 days. 10 tablet 07/20/20 25 2024 Active losartan (Cozaar) 25 MG tabletIndicatio ns:Essential hypertension Take 1 tablet (25 mg) by mouth Once per day. 90 tablet 05/27/20 25 2024 Discontinued(R eorder (will not trigger notification to Pharmacy)) Hospital, Clinic, or Other Facility Administered Medication Ordered Dose Route Frequency Start Date End Date Status albuterol (2.5 MG/3ML) 0.083% nebulizer solution 2.5 mgIndications:Wheezi ng 2.5 mg NEBULIZATION Once 07/20/2025 07/20/2025 Ended Active Problems Problem Noted Date Diagnosed Date High triglycerides 07/20/2025 Screening for malignant neoplasm of colon 2024 Overview (01/15/2025): Referred for C-scope repeat 01/15/25, last done 2020, stool present Chronic pain of left knee 01/15/2025 Overview (01/15/2025): Better with diclofenac topical or ibuprofen. Will let me know if this gets any worse. Dental abscess 11/18/2024 Chronic constipation 09/05/2022 Essential hypertension 2022 Left cervical radiculopathy 04/12/2022 Overview (10/13/2024): Last Assessment & Plan: Ms. Doty returns with her son who serves as barrel plater. The brought the PT referral to [place] but were never called back with an appointment for an evaluation. Essentially, nothing is changed except that her left-sided neck pain has slightly diminished on the new medication provided at the clinic. Also, the tingling in her left hand can switch back and forth and is currently in her right hand. This flares up when she has her hand raised holding her phone and she also wakes up several times per night. On exam, strength is 5/5, Phalen's maneuver and Tinel's test at the wrist is positive bilaterally. At this point, I reissued the PT slip and encouraged him to follow- up and make sure she gets an appointment. The cervical spondylosis is mild and we should address that anyway. I am also going to request an upper extremity EMG/NCV to r/o carpal tunnel syndrome. Cervical radiculopathy 07/25/2021 Obesity (BMI 30-39.9) 11/17/2015 Encounters Date Type Department Care Team Description 07/20/2025 11:30 AM EST Office Visit [facility] MEDICINE [address] [place] [phone] Rosie Jackson ANP Essential hypertension (Primary Dx); High triglycerides; Perioral numbness; Tongue burning sensation; Dysuria; Bilateral hearing loss, unspecified hearing loss type; Encounter for immunization; Wheezing 07/20/2025 Travel 07/19/[address] [address] Rosie Jackson ANP chart prep 07/07/2025 Results Follow-Up [facility] [address] [place] [phone] Rosie Jackson ANP Helicobacter pylori, Urea Breath Test 06/08/2025 Telephone [facility] [address] [place] [address] Rosie Jackson ANP Referral 05/27/2025 Refill [facility] [address] [place], [place] [phone] Rosie Jackson ANP Essential hypertension; Hypertriglyceridemia 05/07/2025 1:45 PM EDT Office Visit [facility] OPTOMETRY [address] [place] [address] Tarvin, Ashanti, OD Dry eyes, bilateral (Primary Dx); Hypermetropia, bilateral 05/07/2025 Travel 05/03/2025 Orders Only [facility] [address] [place] [address] Rosie Jackson ANP 05/03/2025 Telephone [facility] [address] [place] [address] Rosie Jackson, MONTSE dec recall from Last 3 Months Immunizations Immunization Administration Dates Next Due Hep B, adult 08/21/2022,11/17/2015 Influenza injectable quadriv alent IIV4 with preservative 10/16/2019 Influenza injectable quadriv alent preservative free 06/29/2022,07/25/2021,05/19/2020,2018 Influenza, IIV3, injectable 07/25/2021,1 ,10/16/2019,2018 Influenza, seasonal, injecta ble, preservative free 07/20/2025,06/30/2024 Pfizer Covid-19 Vaccine 12+ 06/30/2024 Pfizer Covid-19 Vaccine 12+ Bivalent 10/11/2022 Pneumococcal Conjugate PCV 20 01/15/2025 Tdap 10/16/2019 Zoster, Recombinant 11/06/2022,08/21/2022 Social History Tobacco Use Types Packs/Day Years Used Date Smoking Tobacco: Never Passive Smoke Exposure: Never Smokeless Tobacco: Never Tobacco Cessation:Counseling Given: Not Answered Alcohol Use Standard Drinks/Week Comments Not Currently [...] Orientation Straight 06/11/2022 10 :36 AM EDT Last Filed Vital Signs Vital Sign Reading [...] Mass Index 42.66 07/20/2025 11:23 AM EST Plan of Treatment Upcoming Encounters Date Type Department Care Team (Late st Contact Info) Description 09/17/2025 2:15 PM EST Office Visit [facility] MEDICINE [address] [place] [address] Rosie Jackson, ANP [address] [place] [address] Health Maintenance Due Date Last Done Comments CT Colonography 1968 Dental Oral Exam 1968 Dental Prophylaxis 1968 Dental X-Ray: Bitewings 1968 Dental X-Ray: Full Mouth 1968 FIT DNA/Cologuard 1968 FIT 1968 FOBT 1968 Sigmoidoscopy 1968 RSV Patients and Patients Aged 60 years or older (1 - Risk 50-74 years 1-dose series) 2018 COVID-19 Vaccine (2024- season) 2025 06/30/2024, 10/11/2022, 01/27/2021, Additional history exists SDOH Screening 01/08/2026 01/08/2025 Depression Screening 01/15/2026 01/15/2025, 01/16/20 25 Disability Screening 01/15/2026 01/15/2025 Alcohol/Substance Use Screening 03/18/2026 03/18/2025 Cervical Cancer Screening 04/20/2026 HPV/Cotest 04/20/2026 04/20/2021 Pap Smear 04/20/2026 04/20/2021 Tobacco Screening 07/20/2026 07/20/2025 Mammogram 05/03/2027 05/03/2025, 02/09, 02/21/2024, Additional history exists DTaP/Tdap/Td Vaccines (2 - Td or Tdap) 10/15/2029 10/16/2019 Lipid Panel 01/15/2030 01/15/2025, 03/03/2024 Colonoscopy 11/08/2030 11/08/2020 Colorectal Cancer Screening 11/08/2030 Hepatitis C Screening Completed 10/16/2019 HIV Screening Completed 11/07/2020, 10/16/2019 Hepatitis B Vaccines Discontinued 08/21/2022, 11/17/19 16 Zoster Vaccines Completed 11/06/2022, 08/21/2022 Pneumococcal Vaccine: 50+ Years Completed 01/15/2025 Influenza Vaccine Completed 07/20/2025, , 06/29/2022, Additional history exists HIB Vaccines Aged Out No longer eligi [...] patient's age to complete this topic Meningococcal Vaccine Aged Out No janna lorena eligible based on patient's age to complete this topic RSV under 20 months Aged Out No longe r eligible based on patient's age to complete this topic Rotavirus Vaccines Aged Out No longer eligible based on patient's age to complete this topic Procedures Procedure Name Priority Date/Time Associated Diagnosis Comments HELICOBACTER PYLORI, UREA BREATH TEST Routine 07/01/2025 10:30 AM EST BI MAMMOGRAM SCREENING TOMOSYNTHESIS BILATERAL Routine 05/03/2025 3:00 PM EDT LIPID PANEL, STANDARD Routine 01/15/2025 10:54 AM EDT Hypertriglyceridem ia HPV MRNA E6/E7 Routine 04/20/2021 10:41 AM EDT THINPREP PAP Routine 04/20/2021 10:41 AM EDT HM COLONOSCOPY Routine 11/08/2020 HIV 1/2 ANTIGEN/ANTIBODY, FOURTH GENERATION W/RFL Routine 11/07/2020 3:00 PM EDT ZZZ HISTORICAL HEPATITIS C ANTIBODY RFLX Routine 10/16/2019 11:45 AM EST from Last 3 Months or Most Recently Relevant to Health Maintenance Results * Helicobacter pylori, Urea Breath Test (07/01/2025 10:30 AM EST) H. pylori Breath Test Positive Negative [facility] Comment:Antimicrobials, prot on pump inhibitors and bismuthpreparations are known to suppress H. pylori. Ingestingthese medications within two weeks prior to performing thebreath test may produce negative test results. A positiveresult is still clinically valid. 07/01/2025 10:3 0 AM EST 07/01/2025 4:13 PM EST us Generic External Data Provider LAB BODY FLUIDS A ND STOOLS ORDERABLES Final Result [facility] [address] [place] [address] [phone] * BI Mammogram Screening Tomosynthesis Bilateral (05/03/2025 3:00 PM EDT) Anatomical Region Laterality Modality Breast Bilateral Mammography 05/03/2025 3:00 PM EDT Narrative 05/04/2025 7:28 PM EDT [facility] [address] [place] [address] Mammography Report Signed Patient: Theodora Doty MR#: [id number] 136 : 1970 Acct:[id number] Age/Sex: 54 / F ADM Date: 05/03/25 Loc: HO.MAMMO Attending Dr: Rosie Jackson NP Ordering Physician: ROSIE JACKSON NP Results: 1Negative Date of Service: 05/03/25 Follow Up: 1 Year From Orig ina Mammogram Procedure(s): MM tomosynthesis screening BI Accession Number(s): [id number] cc: ROSIE JACKSON NP Reason For Exam: SCREENING EXAMINATION: MM SCREENING DIGITAL BREAST TOMOSYNTHESIS, BILATERAL CLINICAL INFORMATION: Screening. Asymptomatic. COMPARISON: February 21, 2024 and February 05, 2023 TECHNIQUE: Digital breast tomosynthesis is performed in mediolateral oblique and craniocaudal views along with computer-aided detection (CAD). Synthesized 2D images are generated from the tomosynthesis. FINDINGS: BREAST COMPOSITION: There are scattered areas of fibroglandular density. BILATERAL BREASTS: No significant masses, suspicious calcifications or other abnormalities are seen in either breast. MM/MM tomosynthesis screening BI IMPRESSION: BILATERAL BREASTS: Negative, no mammographic evidence of malignancy. Normal interval follow-up is recommended in 12 months. ASSESSMENT: BI-RADS: Category 1: Negative RECOMMENDATION: Routine annual mammography screening. FOLLOW-UP: 1 year F/U This examination should not preclude the clinical evaluation of a suspicious palpable abnormality. This patient's information was entered into a reminder system with a target due date for their next mammogram. Electronically signed by: Sharona Blake MD 05/04/2025 07:25 PM EDT Dictated By: Sharona Blake MD Signed By: <Electronically signed by Sharona Blake MD in OV> 05/04/25 192 DD/ 1500 TD/TT: 05/03/25 1520 Pasting Inspector: Procedure Note Donotuseinterpreter, Image - 05/04/2025 [facility] [address] [place] [address] Mammography Report Signed Patient: Theodora Doty CMR#: [id number] 136 : 1970Acct:[id number] Age/Sex: 54 / FADM Date: 05/03/25 Loc: HO.MAMMO Attending Dr: Rosie Jackson NP Ordering Physician: ROSIE JACKSON NPResults: 1Negative Date of Service: 05/03/25Follow Up: 1 Year From Orig inal Mammogram Procedure(s): MM tomosynthesis screening BI Accession Number(s): [id number] cc: ROSIE JACKSON NP Reason For Exam: SCREENING EXAMINATION: MM SCREENING DIGITAL BREAST TOMOSYNTHESIS, BILATERAL CLINICAL INFORMATION: Screening. Asymptomatic. COMPARISON: February 21, 2024 and February 05, 2023 TECHNIQUE: Digital breast tomosynthesis is performed in mediolateral oblique and craniocaudal views along with computer-aided detection (CAD). Synthesized 2D images are generated from the tomosynthesis. FINDINGS: BREAST COMPOSITION: There are scattered areas of fibroglandular density. BILATERAL BREASTS: No significant masses, suspicious calcifications or other abnormalities are seen in either breast. MM/MM tomosynthesis screening BI IMPRESSION: BILATERAL BREASTS: Negative, no mammographic evidence of malignancy. Normal interval follow-up is recommended in 12 months. ASSESSMENT: BI-RADS: Category 1: Negative RECOMMENDATION: Routine annual mammography screening. FOLLOW-UP: 1 year F/U This examination should not preclude the clinical evaluation of a suspicious palpable abnormality. This patient's information was entered into a reminder system with a target due date for their next mammogram. Electronically signed by: Sharona Blake MD 05/04/2025 07:25 PM EDT Dictated By: Sharona Blake MD Signed By: <Electronically signed by Sharona Blake MD in OV> 05/04/25 1925 DD/ 1500 TD/TT: 05/03/25 1520 Pasting Inspector: Rosie WILLARD IM BI PROCEDURES Final Result * (ABNORMAL) Lipid Panel, Standard (01/15/2025 10:54 AM EDT) Triglycerides 145 <150 mg/dL [facility] Comment:Desirable Triglyceri de: less than 150 mg/dLBorderline High Triglyceride 150-199 mg/dLHigh Triglyceride: 200-499 mg/dLVery High Triglyceride: greater than or equal to 5OO mg/dL Cholesterol 171 <200 mg/dL [facility] Comment:Desirable Cholestero l: less than 200 mg/dLBorderline High Cholesterol: 200-239 mg/dLHigh Cholesterol: greater than 239 mg/dL LDL Cholesterol Calculated 103(H) <100 mg/dL [facility] Comment:Desirable LDL: less than 100 mg/dLNear Optimal/Above Optimal LDL: 110- 129 mg/dLBorderline High LDL: 130-159 mg/dLHigh LDL: 160-189 mg/dLVery High LDL: greater than or equal to 190 mg/dL HDL Cholesterol 39(L) >40 mg/dL [facility] Comment:Desirable HDL: great er than 40 mg/dL Note: This HDL assay may give artificially low results in patients with liver disease. Blood Venous blood specimen / Unknown 01/15/2025 10:54 AM EDT 01/15/2025 1:17 PM EDT us Rosie Jackson MONTSE LAB BLOOD ORDERABLES Final Resul t Performing Organization Address City/[facility]/ZIP Co de Phone Number [facility] [address] [place] [address] [phone] * THINPREP PAP (04/20/2021 10:41 AM EDT) Clinical Information: None given [facility] COMMENT SEE COMMENT [facility] Comment: EXPLANATORY NOTE: The Pap is a screening test for cervical cancer. It is not a diagnostic test and is subject to false negative and false positive results. It is most reliable when a satisfactory sample, regularly obtained, is submitted with relevant clinical findings and history, and when the Pap result is evaluated along with historic and current clinical information. Virology Teacher : SEE COMMENT [facility] Comment: NSS, CT(ASCP) CT screening location: [place] [address] Interpretation/R esult: Negative for intraepithelial lesion or malignancy. [facility] LMP: NONE GIVEN [facility] Prev. BX: NONE [facility]IV[facility] Prev. PAP: NONE [facility]IVEN [facility] SOURCE: None given [facility] Statement Of Adequacy: SEE COMMENT [facility] Comment: Satisfactory for evaluation. Endocervical/transformation zone component absent. Age and/or menstrual status not provided 04/20/2021 10:4 1 AM EDT Khadijah HERNANDES LAB PATHOLOGY ORDERABLES Final Result Performing Organization Address City/[facility]/ZIP Co de Phone Number [facility] [address] * HPV mRNA E6/E7 (04/20/2021 10:41 AM EDT) HPV nRNA E6/E7 Not Detected Not Detected [facility] Comment: Methodology: Machinist Supervisor-Mediated Amplification This assay detects E6/E7 viral messenger RNA (mRNA) from 14 high-risk HPV types (16,18,31,33,35,39,45,51,52,56,58,59,66,68). The analytical performance characteristics of this assay have been determined by [employer]. The modifications have not been cleared or approved by the FDA. This assay has been validated pursuant to the CLIA regulations and is used for clinical purposes. For additional information, please refer to http://[employer]Lift/faq/VKB378q8 (This link if provided for information/ educational purposes only.) 04/20/2021 10:4 1 AM EDT Khadijah Todd CN LAB BLOOD ORDERABLES Marisol l Result Performing Organization Address City/[facility] Co de Phone Number [facility] [address] * Colonoscopy (11/08/2020) Colonoscopy Normal Normal Amy Luna MD HEALTH MAINTENANCE Final Result * HIV 1/2 ANTIGEN/ANTIBODY,FOURTH GENERATION W/RFL (11/07/2020 3:00 PM EDT) HIV-1/2 ANTIGEN AND ANTIBODIES, 4TH GENERATION W/ REFLEX NON-REACT THANIA NON-REACT THANIA [facility] Comment: HIV-1 antigen and HIV-1/HIV-2 antibodies were not detected. There is no laboratory evidence of HIV infection. PLEASE NOTE: This information has been disclosed to you from records whose confidentiality may be protected by state law. If your state requires such protection, then the state law prohibits you from making any further disclosure of the information without the specific written consent of the person to whom it pertains, or as otherwise permitted by law. A general authorization for the release of medical or other information is NOT sufficient for this purpose. For additional information please refer to http://education.streamit.[employer]/faq/IDF348 (This link is being provided for informational/ educational purposes only.) The performance of this assay has not been clinically validated in patients less than 2 years old. 11/07/2020 3:00 PM EDT Edward Calderon [employer] LAB BLOOD ORDERABLES Final Result Performing Organization Address City/State/[facility] Co de Phone Number [facility] [address] * HEPATITIS C ANTIBODY RFLX (10/16/2019 11:45 AM EST) HEPATITIS C ANTIBODY NONREACTIVE NONREACTIVE [facility] Comment: Antibodies to HCV not detected; does not exclude early acute HCV infection. 10/16/2019 11:4 5 AM EST us Rosie Jackson ANP HISTORICAL/NON ORDERABLE LABS Fi nal Result Performing Organization Address [facility] Co de Phone Number [facility] [address] from Last 3 Months or Most Recently Relevant to Health Maintenance Insurance DENTAL - HSN PARTIAL (MEDICAID) Care Teams Cook Fish Eggs Relationship Specialty Start Date End Date Rosie Jackson ANP [address] [place] [phone] PCP - General Family Medicine 10/16/19
--- OUTSIDE RECORDS SUMMARY | 2025-07-20 23:09 | XMS_ITS | Encounter Summary ---
Author Organization [employer] Address [address] [facility] [address] [place] [address] Care Team Providers Care Supervisor Wheel Shop Name Role Phone Bernadette Lubin Primary Care Provider [phone] Reason for Visit * Reason Onset Date Comments chart prep 07/19/2025 Encounter Details Date Type Department Care Team ([facility] Contact Info) Description 07/19/2025 Telephone [facility] [address] [place], [place] [phone] Bernadette Lubin ANP [address] [place], [place] [phone] chart prep Social History Tobacco Use Types Packs/Day Years [...] the past 12 months, has t he [employer], gas, oil or water company threatened to [...] AM EDT documented as of this encounter Miscellaneous Notes * Telephone Encounter - Kelly You [place] - 07/19/2025 9:03 AM EST Chart Prep Labs: done Images: done Referrals: complete Vaccines due: Covid, Flu, and RSV Screenings: None Overdue care gaps: None documented in this encounter Plan of Treatment Upcoming Encounters Date Type Department Care Team (Late st Contact Info) Description 09/17/2025 2:15 PM EST Office Visit [facility] [address] [place] [address] Bernadette Lubin ANP [address] [place] [address] documented as of this encounter Visit Diagnoses Not on filedocumented in this encounter Additional Health Concerns Assessment Noted Time PHQ-9 Depression Total Score: 0 01/16/20 25 9:31 AM EDT documented as of this encounter Care Teams Supervisor Wheel Shop Relationship Specialty Start Date End Date Bernadette Lubin ANP [address] [place] [address] PCP - General Family Medicine 10/16/19 documented as of this encounter
--- OUTSIDE RECORDS SUMMARY | 2025-07-20 23:09 | XMS_ITS | Encounter Summary ---
Author Organization [employer] Address [address] [facility] 7t [place] [address] Care Team Providers Care Mortgage Loan Computation Clerk Name Role Phone Bernadette Lubin Primary Care Provider [phone] Reason for Visit * Reason Onset Date Comments uanble to post insurance 10/13/2024 Encounter Details Date Type Department Care Team ([facility] st Contact Info) Description 10/13/2024 Telephone [facility] ADULT DENTAL [address] [place] [address] Chel Subramanian DDS [address] [place], [place] [phone] uanble to post insurance Social History Tobacco Use Types Packs/Day Years Used Date Smoking Tobacco: Never Passive Smoke Exposure: Never Smokeless Tobacco: Never Alcohol Use Standard Drinks/Week Comments Not Currently 0 (1 standard drink = 0.6 oz pur e alcohol) Depression Answer Date Recorded Patient Health Questionnaire-9 Score 5 03/06/2024 Patient Health Questionnaire-9 Score 5 03/06/2024 Last PHQ-9: Questionnaire Data Not on file 0 03/06/2024 Housing Stability Answer Date Recorded What is your housing situation today? I have abilio kwok 06/06/[address] you li ve. Do you have problems with any of the following? None of the above 06/06/2023 Food Insecurity Answer Date Recorded Within the past 12 months, y ou worried that your food would run out before you got money to buy more: Never True 06/06/2023 Within the past 12 months,th e food you bought just didn't last and you didn't have enough money to get more: Never True Transportation Answer Date Recorded In the past 12 months, has l ack of transportation kept you from medical appts, meetings, work or from getting things needed for daily living? Yes, it has kept me from medical appointments or getting medications. 09/18/2023 Utilities Answer Date Recorded In the past 12 months, has t he electric, gas, oil or water company threatened to shut off services in your home? No 06/06/2023 Depression Answer Date Recorded Patient Health Questionnaire-2 Score 2 03/06/2024 Comments Unknown Sex and Gender Information Value Date Recorded Sex Assigned at Female 06/11/2022 10:36 AM EDT Legal Sex Female 10:36 AM EDT Gender Identity Female 06/11/2022 10:36 AM EDT Sexual Orientation Straight 06/11/2022 10 :36 AM EDT documented as of this encounter Miscellaneous Notes * Telephone Encounter - Aida Jalloh - 10/13/2024 8:36 AM EST Patient is coming in for emergency 11:30 appt. Unable to post Health Safety Net insurance as portalis not running on PAR side DR documented in this encounter Plan of Treatment Upcoming Encounters Date Type Department Care Team (Late st Contact Info) Description 09/17/2025 2:15 PM EST Office Visit [facility] MEDICINE [address] [place] [phone] Bernadette Lubin ANP [address] [place] [address] documented as of this encounter Visit Diagnoses Not on filedocumented in this encounter Additional Health Concerns Assessment Noted Time PHQ-9 Depression Total Score: 5 03/06/20 24 11:15 AM EDT documented as of this encounter Care Teams Mortgage Loan Computation Clerk Relationship Specialty Start Date End Date Bernadette Lubin ANP [address] [place] [phone] PCP - General Family Medicine 10/16/19 documented as of this encounter
[2025-07-21 00:45] LABS: Bacterial Vaginosis PCR NEGATIVE (Negative); Candida Group PCR DETECTED (Not Detect); Candida glab krusei PCR NOT DETECTED (Not Detect); Trichomonas vaginalis PCR NOT DETECTED (Not Detect)
== END 2025-07-20 18:04 | disposition home or self-care (01) ==
LOC: HO.HHCLNP 18:03
PROVIDERS: Visit Provider Nurse Practitioner Primary Care
DX: R30.0 Dysuria (principal)
CPT/HCPCS: 81515

== ENCOUNTER 2025-07-21 13:45 | Outpatient (REF) | payer OTHER, SELFPAY ==
--- OUTSIDE RECORDS SUMMARY | 2025-07-20 11:30 | XMS_ITS | Encounter Summary ---
Author Organization [employer] Address [address] [facility] [address] [place] [address] Care Team Providers Care Right Of Way Maintenance Supervisor Name Role Phone Bernadette Lubin Primary Care Provider [phone] Reason for Referral * (Routine) - Authorized Specialty Diagnoses / Procedures Referred By Contac t Referred To Contact Diagnoses Encounter for immunization Procedures FLU VACCINE TRIVALENT [phone] (Fluarix) 19 yrs + Bernadette Lubin ANP [address] [place] [address] Phone: tel: fax: Referral ID Status Reason Start Date Expiration Date V isits Requested Visits Authorized [id number] Authorized 07/20/2025 07/20/2026 1 1 * Consultation (Urgent) - Authorized Specialty Diagnoses / Procedures Referred By Contac t Referred To Contact Audiology Diagnoses Bilateral hearing loss, unspecified hearing loss type Bernadette Lubin ANP [address] [place] [address] Phone: tel: fax: [facility] [place] [address] [place], [place] Phone: tel: fax: Referral ID Status Reason Start Date Expiration Date Visits Requested Visits Authorized [id number] Authorized Specialty Services Required 07/20/2025 07/20/2026 1 1 Reason for Visit * Reason Comments Follow-up Encounter Details Date Type Department Care Team ([facility] Contact Info) Description 07/20/2025 11:30 AM EST Office Visit [facility] [address] [place] [address] Bernadette Lubin ANP [address] [place] [address] Essential hypertension (Primary Dx); High triglycerides; Perioral [...] antibi??ticos de gastroenterolog??a justin hasta ahora. - [place] obi tableta de Diflucan de 150 mg [...] Rx'd. Follows lost salt. Kelly AGUILERA provided Malawian interpretation. 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 on repeat 130/96 Physical Exam [...] Encounter for immunization - FLU VACCINE TRIVALENT [id number] (Fluarix) 17 yrs + Wheezing URI vs [...] TO FOUR TIMES DAILY NEEDED FOR PAIN (MONTSERRATIAN LABEL) 100 g 1 hydrocortisone (Anusol-HC) 2.5 % rectal cream INSERT 1 APPLICATION RECTALLY TWICE DAILY [id number] g 0 Lidoderm 5 % patch APPLY [...] Description 09/17/2025 2:15 PM EST Office Visit [address] [address] Bernadette Lubin ANP [address] [place] [address] 09/20/2025 1:15 PM EST Office Visit [address] [address] Bernadette Lubin ANP [address] [place] [phone] Scheduled Orders Name Type Priority Associated Diagnoses Orde r Schedule Hemoglobin A1c Lab Routine Dysuria Expected: 07/20/2025 (Approximate), Expires: 07/20/2026 Scheduled Referrals Name Type Priority Associated Diagnoses Orde r Schedule Referral to Audiology Outpatient Referral Urgent Bilateral hearing loss, unspecified hearing loss type Expected: 07/20/2025 (Approximate), Expires: 07/20/2026 documented as of this encounter Procedures Procedure Name Priority Date/Time Associated Diagnosis Comments URINALYSIS, COMPLETE, WITH REFLEX TO CULTURE Routine 07/21/2025 1:52 PM EST Dysuria VITAMIN B12 Routine 07/21/2025 1:52 PM EST Perioral numbness BASIC METABOLIC PANEL Routine 07/21/2025 1:52 PM EST Perioral numbness BACTERIAL VAGINOSIS PANEL Routine 07/20/2025 11:53 AM EST Dysuria documented in this encounter Results * Vitamin B12 (07/21/2025 1:52 PM EST) Vitamin B12 242 200 - 900 pg/mL [facility] Comment:NORMAL 200-900 PG/ML INDETERMINATE 160-199 PG/ML DEFICIENT < 160 PG/ML Blood Venous blood specimen / Unknown 07/21/2025 1:52 PM EST 07/21/2025 4:14 PM EST us Bernadette Lubin ANP LAB BLOOD ORDERABLES Final Resul t [facility] [address] [place] [phone] * (ABNORMAL) Basic Metabolic Panel (07/21/2025 1:52 PM EST) Sodium 140 135 - 145 mmol/L [facility] Potassium 3.9 3.3 - 5.1 mmol/L [facility] Chloride 109(H) 96 - 108 mmol/L [facility] Carbon Dioxide 24 22 - 29 mmol/L [facility] Anion Gap 11(L) 12 - 20 [facility] Urea Nitrogen (BUN) 16 9 - 16 mg/dL [facility] Creatinine, Serum 0.51 0.5 - 1.4 mg/dL [facility] Estimated Glomerular Filt Rate >60 [facility] Comment:Chronic Kidney Disea se: Estimated GFR < 60 mL/min/[id number] Kidney Disease: Estimated GFR < 15 mL/min/1.73m2 Glucose 116(H) 60 - 115 mg/dL [facility] Calcium 8.6 8.4 - 10.2 mg/dL [facility] Blood Venous blood specimen / Unknown 07/21/2025 1:52 PM EST 07/21/2025 4:14 PM EST us Bernadette Lubin ANP LAB BLOOD ORDERABLES Final Resul t Performing Organization Address [facility] Co de Phone Number [facility] [address] [place] [address] [phone] * (ABNORMAL) Urinalysis, Complete, with Reflex to Culture (07/21/2025 1:52 PM EST) Color Urine Yellow [facility] Appearance Urine Clear [facility] PH 6.0 5.0 - 9.0 [facility] Glucose Urine UA Negative Negative mg/dL [facility] Urine Blood Negative Negative [facility] Specific [place] - Urine 1.020 1.005 - 1.025 [facility] Urine Protein Negative Neg-Trace mg/dL [facility] Urine Ketones Negative Negative mg/dL [facility] Nitrite Urine Negative Negative [facility] Leukocyte Esterase Urine Trace(A) Negative [facility] RBC Urine 0-2 0 - 2 /HPF [facility] Urine WBC 0-5 0 - 5 /HPF [facility] Urine Squamous Epithelial Cell 11-20 0 - 2 /HPF [facility] Urine Bacteria None Seen None Seen [facility] Hyaline Casts, Urine 0-2 0 - 2 /LPF [facility] Urine 07/21/2025 1:52 PM EST 07/21/2025 4:14 PM EST Narrative [facility] - 07/21/2025 4:28 PM EST Urine, Clean Catch Bernadette [facility] URINE ORDERABLES Final Resul t Performing Organization Address [facility] Co de Phone Number [facility] [address] [place] [address] [phone] * (ABNORMAL) Bacterial Vaginosis Panel (07/20/2025 11:53 AM EST) TRICHOMONAS VAGINALIS DETECTION BY PCR NOT DETECTED Not Detect [facility] BACTERIAL VAGINOSIS DETECTION BY PCR NEGATIVE Negative [facility] Comment:The BV organism targ ets of the Xpert Xpress MVP test can becommensal in women; Xpert Xpress MVP positive results forbacterial vaginosis should be considered in conjunction withother clinical and patient information to determine thedisease status. Organisms that are not detected by the XpertXpress MVP test have also been reported to be associatedwith BV and aerobic vaginitis.The Xpert Xpress MVP test performance has not been evaluatedin patients under the age of 14. ARGELIA GROUP DETECTION BY PCR DETECTED(A) Not Detect [facility] Argelia glab krusei PCR NOT DETECTED Not Detect [facility] Swab Vaginal structure / Unknown 07/20/2025 11:53 AM EST 07/20/2025 6:03 PM EST us Bernadette [facility] MICROBIOLOGY - GENERAL ORDER VERITO Final Result [facility] [address] [place] [address] [phone] documented in this encounter Visit Diagnoses Diagnosis Essential hypertension- [...] Time PHQ-9 Depression Total Score: 0 01/16/20 25 9:31 AM EDT documented as of this encounter Care Teams Right Of Way Maintenance Supervisor Relationship Specialty Start Date End Date Bernadette Lubin ANP [address] [place] [phone] PCP - General Family Medicine 10/16/19 documented as of this encounter
[2025-07-21 16:23] LABS: Appearance Urine Clear; Glucose Urine UA Negative (Negative); PH 6.0 (5.0-9.0); Specific Gravity - Urine 1.020 (1.005-1.025); UMIC TRIGGER UACC YES
[2025-07-21 16:33] LABS: INTERNATIONAL NORM RATIO 0.9 (0.9-1.1); Prothrombin Time 11.1 SEC (11.2-13.5)
[2025-07-21 17:01] LABS: Anion Gap 11 (12-20); Blood Urea Nitrogen 16 mg/dL (9-16); Calcium 8.6 mg/dL (8.4-10.2); Carbon Dioxide 24 mmol/L (22-29); Chloride 109 mmol/L (96-108); Estimated Glomerular Filt Rate > 60; Lipase 36 U/L (8-78); Potassium 3.9 mmol/L (3.3-5.1); Sodium 140 mmol/L (135-145)
[2025-07-21 17:10] LABS: Ferritin 21 ng/mL (10-250)
[2025-07-21 18:14] LABS: Vitamin B12 242 pg/mL (200-900)
--- OUTSIDE RECORDS SUMMARY | 2025-07-21 21:18 | XMS_ITS | Clinical Summary ---
Author Organization [employer] Address [address] [facility] 7t [place] [address] Care Team Providers Care Client Business Manager Name Role Phone Rosie Jackson Primary Care Provider [phone] Allergies No known active allergies Medications Lidoderm [...] TO FOUR TIMES DAILY NEEDED FOR PAIN (JAPANESE LABEL) 100 g 1 01/16/20 25 Active [...] returns with her son who serves as torch shearer. The brought the PT referral to [facility] but were never called back with an [...] Encounters Date Type Department Care Team Description 07/21/2025 Results Follow-Up [address] [address] Rosie Jackson ANP Bacterial Vaginosis Panel 07/20/2025 11:30 AM EST Office Visit [place] [address] Rosie Jackson ANP Essential hypertension (Primary Dx); High triglycerides; Perioral numbness; Tongue burning sensation; Dysuria; Bilateral hearing loss, unspecified hearing loss type; Encounter for immunization; Wheezing 07/20/2025 Travel 07/19/[address] [address] Rosie Jackson ANP chart prep 07/07/2025 Results Follow-Up [address] [address] Rosie Jackson ANP Helicobacter pylori, Urea Breath Test, Prothrombin Time-INR, Lipase, Additional followed-up results: 2 06/08/2025 Telephone [place] [address] Rosie Jackson ANP Referral 05/27/[address] [facility] CHC MED & PEDS [address] [place] [address] Rosie Jackson ANP Essential hypertension; Hypertriglyceridemia 05/07/2025 1:45 PM EDT Office Visit [facility] OPTOMETRY [address] [place] [address] Tarka, Ashanti, OD Dry eyes, bilateral (Primary Dx); Hypermetropia, bilateral 05/07/2025 Travel 05/03/2025 Orders Only [facility] MEDICINE [address] [place] [address] Rosie Jackson ANP 05/03/[address] [facility] MEDICINE [address] [place] [address] Rosie Jackson ANP dec recall from Last 3 Months Immunizations [...] Description 09/17/2025 2:15 PM EST Office Visit [address] [address] Rosie Jackson, ANP [address] [place], [place] [phone] 09/20/2025 1:15 PM EST Office Visit [facility] [address] [place] [address] Rosie Jackson, ANP [address] [place], [place] [phone] Health Maintenance Due Date Last Done Comments CT Colonography 1968 Dental Oral Exam 1968 Dental Prophylaxis 1968 Dental X-Ray: Bitewings 1968 Dental X-Ray: Full Mouth 1968 FIT DNA/Cologuard 1968 FIT 1968 FOBT 1968 Sigmoidoscopy 1968 RSV Patients and Patients Aged 60 years or older (1 - Risk 50-74 years 1-dose series) 2018 COVID-19 Vaccine ( season) 2025 06/30/2024, 10/11/2022, 01/27/2021, Additional history exists SDOH Screening 01/08/2026 01/08/2025 Depression Screening 01/15/2026 01/15/2025, 01/16/20 25 Disability Screening 01/15/2026 01/15/2025 Alcohol/Substance Use Screening 03/18/2026 03/18/2025 Cervical Cancer Screening 04/20/2026 HPV/Cotest 04/20/2026 04/20/2021 Pap Smear 04/20/2026 04/20/2021 Tobacco Screening 07/20/2026 07/20/2025 Diabetes: Hemoglobin A1C 07/21/2026 025, 08/01/2022, 10/16/2019 Mammogram 05/03/2027 05/03/2025, 02/09, 02/21/2024, Additional history [...] Procedure Name Priority Date/Time Associated Diagnosis Comments HEMOGLOBIN A1C Routine 07/21/2025 1:52 PM EST FERRITIN Routine 07/21/2025 1:52 PM EST LIPASE Routine 07/21/2025 1:52 PM EST PROTHROMBIN TIME-INR Routine 07/21/2025 1:52 PM EST VITAMIN B12 Routine 07/21/2025 1:52 PM EST Perioral numbness BASIC METABOLIC PANEL Routine 07/21/2025 1:52 PM EST Perioral numbness URINALYSIS, COMPLETE, WITH REFLEX TO CULTURE Routine 07/21/2025 1:52 PM EST Dysuria BACTERIAL VAGINOSIS PANEL Routine 07/20/2025 11:53 AM EST Dysuria HELICOBACTER PYLORI, UREA BREATH TEST Routine 07/01/2025 [...] Recently Relevant to Health Maintenance Results * (ABNORMAL) Urinalysis, Complete, with Reflex to Culture (07/21/2025 1:52 PM EST) Color Urine Yellow [facility] Appearance Urine Clear [facility] PH 6.0 5.0 - 9.0 [facility] Glucose Urine UA Negative Negative mg/dL [facility] Urine Blood Negative Negative [facility] Specific [place] - Urine 1.020 1.005 - 1.025 [facility] Urine Protein Negative Neg-Trace mg/dL [facility] Urine Ketones Negative Negative mg/dL [facility] Nitrite Urine Negative Negative [facility] Leukocyte Esterase Urine Trace(A) Negative [facility] RBC Urine 0-2 0 - 2 /HPF [facility] Urine WBC 0-5 0 - 5 /HPF [facility] Urine Squamous Epithelial Cell 11-20 0 - 2 /HPF [facility] Urine Bacteria None Seen None Seen [facility] Hyaline Casts, Urine 0-2 0 - 2 /LPF [facility] Urine 07/21/2025 1:52 PM EST 07/21/2025 4:14 PM EST Narrative [facility] - 07/21/2025 4:28 PM EST Urine, Clean Catch Rosie Jackson ANP LAB URINE ORDERABLES Final Resul t Performing Organization Address [facility] Co de Phone Number [facility] [address] [place] [phone] * (ABNORMAL) Prothrombin Time-INR (07/21/2025 1:52 PM EST) Prothrombin Time 11.1(L) 11.2 - 13.5 SEC [facility] INTERNATIONAL NORM RATIO 0.9 0.9 - 1.1 [facility] Comment:INTERNATIONAL NORMAL IZED RATIO (INR) REFERENCE RANGES Reference RangeFor patients not on anticoagulant therapy: 0.9 - 1.1INR ranges for oral anticoagulanttherapy:For prevention and treatment of venous thrombosis and pulmonary embolism: 2.0 - 3.0For acute myocardial infarction with aspirin therapy: 2.0 - 3.0For acute myocardial infarction without aspirin therapy: 3.0 - 4.0For patients with mechanical prosthetic heart valves: 2.5 - 3.5 07/21/2025 1:52 PM EST 07/21/2025 4:14 PM EST us Generic External Data Provider LAB BLOOD ORDERAB LES Final Result Performing Organization Address [facility] Co de Phone Number [facility] [address] [place] [phone] * Lipase (07/21/2025 1:52 PM EST) Lipase 36 8 - 78 U/L [facility] 07/21/2025 1:52 PM EST 07/21/2025 4:14 PM EST us Generic External Data Provider LAB BLOOD ORDERAB LES Final Result Performing Organization Address City/[facility]/ZIP Co de Phone Number [facility] [address] [place] [phone] * Hemoglobin A1c (07/21/2025 1:52 PM EST) Hemoglobin A1c 5.8 <6.0 % [facility] Comment:Hemoglobin A1C Refer ence Range Adults: 4.8 - 6.0 % Non diabetic: < 6.0 % Goal: < 7.0 %Additional Action Suggested: > 8.0 %Note: Hemoglobin A1c results are invalid for patients with abnormal amounts of HbF. Blood transfusions may impact the HbA1c concentration in the patient sample. Estimated Average Glucose 120 mg/dL [facility] Comment:eAG = Estimated ave rage glucose which is %A1C expressed asaverage glucose, using the formula of the F3D-HaaefbzLnebzbo Glucose study (ADAG), Diabetes Care, Vol.31,#8,Mar. 2007 07/21/2025 1:52 PM EST 07/21/2025 4:11 PM EST us Generic External Data Provider LAB BLOOD ORDERAB LES Final Result Performing Organization Address [facility] Co de Phone Number [facility] [address] [place] [phone] * Ferritin (07/21/2025 1:52 PM EST) Ferritin 21 10 - 250 ng/mL [facility] 07/21/2025 1:52 PM EST 07/21/2025 4:14 PM EST us Generic External Data Provider LAB BLOOD ORDERAB LES Final Result Performing Organization Address City/[facility]/ZIP Co de Phone Number [facility] [address] [place] [phone] * Vitamin B12 (07/21/2025 1:52 PM EST) Vitamin B12 242 200 - 900 pg/mL [facility] Comment:NORMAL 200-900 PG/ML INDETERMINATE 160-199 PG/ML DEFICIENT < 160 PG/ML Blood Venous blood specimen / Unknown 07/21/2025 1:52 PM EST 07/21/2025 4:14 PM EST Rosie Jackson ANP LAB BLOOD ORDERABLES Final Resul t Performing Organization Address [facility] de Phone Number [facility] [address] [place] [phone] * (ABNORMAL) Basic Metabolic Panel (07/21/2025 1:52 PM EST) Pathologist [facility] Sodium 140 135 - 145 mmol/L [facility] Potassium 3.9 3.3 - 5.1 mmol/L [facility] Chloride 109(H) 96 - 108 mmol/L [facility] Carbon Dioxide 24 22 - 29 mmol/L [facility] Anion Gap 11(L) 12 - 20 [facility] Urea Nitrogen (BUN) 16 9 - 16 mg/dL [facility] Creatinine, Serum 0.51 0.5 - 1.4 mg/dL [facility] Estimated Glomerular Filt Rate >60 [facility] Comment:Chronic Kidney Disea se: Estimated GFR < 60 mL/min/1.56i2Yzzwwb Kidney Disease: Estimated GFR < 15 mL/min/1.73m2 Glucose 116(H) 60 - 115 mg/dL [facility] Calcium 8.6 8.4 - 10.2 mg/dL [facility] Blood Venous blood specimen / Unknown 07/21/2025 1:52 PM EST 07/21/2025 4:14 PM EST Rosie Jackson ANP LAB BLOOD ORDERABLES Final Resul t Performing Organization Address [facility] Co de Phone Number [facility] [address] [place] [phone] * (ABNORMAL) Bacterial Vaginosis Panel (07/20/2025 11:53 AM EST) TRICHOMONAS VAGINALIS DETECTION BY PCR NOT DETECTED Not Detect [facility] BACTERIAL VAGINOSIS DETECTION BY PCR NEGATIVE Negative [facility] Comment:The BV organism targ ets of [...] GROUP DETECTION BY PCR DETECTED(A) Not Detect [facility] Argelia glab krusei PCR NOT DETECTED Not Detect [facility] Swab Vaginal structure / Unknown 07/20/2025 11:53 AM EST 07/20/2025 6:03 PM EST Rosie Jackson [facility] MICROBIOLOGY - GENERAL ORDER VERITO Final Result Performing Organization Address [facility] Co de Phone Number [facility] [address] [place] [phone] * Helicobacter pylori, Urea Breath Test (07/01/2025 10:30 AM EST) H. pylori Breath Test Positive Negative [facility] Comment:Antimicrobials, prot on pump inhibitors and bismuthpreparations are known to suppress H. pylori. Ingestingthese medications within two weeks prior to performing thebreath test may produce negative test results. A positiveresult is still clinically valid. 07/01/2025 10:3 0 AM EST 07/01/2025 4:13 PM EST us Generic External Data Provider LAB BODY FLUIDS A ND STOOLS ORDERABLES Final Result [facility] [address] [place] [phone] * BI Mammogram Screening Tomosynthesis Bilateral (05/03/2025 3:00 PM EDT) Anatomical Region Laterality Modality Breast Bilateral Mammography 05/03/2025 3:00 PM EDT Narrative 05/04/2025 7:28 PM EDT [facility] [address] [place] [address] Mammography Report Signed Patient: Theodora Doty MR#: [id number] : 1970 Acct:[id number] Age/Sex: 54 / F ADM Date: 05/03/25 Loc: HO.MAMMO Attending Dr: Rosie Jackson NP Ordering Physician: ROSIE JACKSON NP Results: 1Negative Date of Service: 05/03/25 Follow Up: 1 Year From Orig ina Mammogram Procedure(s): MM tomosynthesis screening BI Accession Number(s): [id number] cc: ROSIE JACKSON NP Reason For Exam: [...] 05/04/25 192 DD/ 1500 TD/TT: 05/03/25 1520 [employer] Handler: Procedure Note Donotuseinterpreter, Image - 05/04/2025 [facility] [address] [place] [address] Mammography Report Signed Patient: Theodora Doty CMR#: [id number] : 1970Acct:[id number] Age/Sex: 54 / FADM Date: 05/03/25 Loc: HO.MAMMO Attending Dr: Rosie Jackson NP Ordering Physician: ROSIE JACKSON NPResults: 1Negative Date of Service: 05/03/25Follow Up: 1 Year From Orig inal Mammogram Procedure(s): MM tomosynthesis screening BI Accession Number(s): [id number] cc: ROSIE JACKSON NP Reason For Exam: [...] Sharona Blake MD 05/04/2025 07:25 PM EDT RP Dictated By: Sharona Blake MD Signed By: <Electronically signed by Sharona Blake MD in OV> 05/04/25 192 DD/ 1500 TD/TT: 05/03/25 1520 [employer] Handler: Rosie Jackson ANP IMG BI PROCEDURES Final Result * (ABNORMAL) Lipid Panel, Standard (01/15/2025 10:54 AM EDT) Triglycerides 145 <150 mg/dL [facility] Comment:Desirable Triglyceri de: less than 150 mg/dLBorderline High Triglyceride 150-199 mg/dLHigh Triglyceride: 200-499 mg/dLVery High Triglyceride: greater than or equal to 5OO mg/dL Cholesterol 171 <200 mg/dL [facility] Comment:Desirable Cholestero l: less than 200 mg/dLBorderline High Cholesterol: 200-239 mg/dLHigh Cholesterol: greater than 239 mg/dL LDL Cholesterol Calculated 103(H) <100 mg/dL [facility] Comment:Desirable LDL: less than 100 mg/dLNear Optimal/Above Optimal LDL: 110- 129 mg/dLBorderline High LDL: 130-159 mg/dLHigh LDL: 160-189 mg/dLVery High LDL: greater than or equal to 190 mg/dL HDL Cholesterol 39(L) >40 mg/dL [facility] Comment:Desirable HDL: great er than 40 mg/dL Note: This HDL assay may give artificially low results in patients with liver disease. Blood Venous blood specimen / Unknown 01/15/2025 10:54 AM EDT 01/15/2025 1:17 PM EDT Rosie Jackson ANP LAB BLOOD ORDERABLES Final Resul t [facility] [address] [place] [phone] * THINPREP PAP (04/20/2021 10:41 AM [...] along with historic and current clinical information. Occupational Health Manager : SEE COMMENT [facility] Comment: NSS, CT(ASCP) CT screening location: [address] [address] Interpretation/R esult: Negative for intraepithelial lesion or malignancy. [facility] LMP: NONE GIVEN [facility] Prev. BX: NONE [facility]IVEN [facility] Prev. PAP: NONE [facility]IVEN [facility] SOURCE: None given [facility] Statement Of Adequacy: SEE COMMENT [facility] Comment: Satisfactory for evaluation. Endocervical/transformation zone component absent. Age and/or menstrual status not provided 04/20/2021 10:4 1 AM EDT us Khadijah HERNANDES LAB PATHOLOGY ORDERABLES Final Result [facility] [address] * HPV mRNA E6/E7 (04/20/2021 10:41 AM EDT) HPV nRNA E6/E7 Not Detected Not Detected [facility] Comment: Methodology: Slip Dumper-Mediated Amplification This assay detects E6/E7 viral messenger RNA (mRNA) from 14 high-risk HPV types (16,18,31,33,35,39,45,51,52,56,58,59,66,68). The analytical performance characteristics of this assay have been determined by [employer]. The modifications have not been cleared or approved by the FDA. This assay has been validated pursuant to the CLIA regulations and is used for clinical purposes. For additional information, please refer to http://education.[employer]/faq/YZI218o9 (This link if provided for information/ educational purposes only.) 04/20/2021 10:4 1 AM EDT Khadijah Perez CNM LAB BLOOD ORDERABLES Marisol l Result Performing Organization Address [facility] Co de Phone Number [facility] [address] [place] [address], * Hm Colonoscopy (11/08/2020) Colonoscopy Normal Normal Amy Luna MD HEALTH MAINTENANCE Final Result * HIV 1/2 ANTIGEN/ANTIBODY,FOURTH GENERATION W/RFL (11/07/2020 3:00 PM EDT) Pathologist [facility] HIV-1/2 ANTIGEN AND ANTIBODIES, 4TH GENERATION W/ REFLEX NON-REACT THANIA NON-REACT THANIA [facility] Comment: HIV-1 antigen and HIV-1/HIV-2 [...] purpose. For additional information please refer to http://education.[employer]/faq/RCV647 (This link is being provided for informational/ educational purposes only.) The performance of this assay has not been clinically validated in patients less than 2 years old. 11/07/2020 3:00 PM EDT Edward Calderon REAL ESTATE ACCOUNT EXECUTIVE LAB BLOOD ORDERABLES Final Result Performing Organization Address [facility] Co de Phone Number [facility] [address] [place] [address], * HEPATITIS C ANTIBODY RFLX (10/16/2019 11:45 AM EST) Pathologist [facility] HEPATITIS C ANTIBODY NONREACTIVE NONREACTIVE [facility] Comment: Antibodies to HCV not detected; does not exclude early acute HCV infection. 10/16/2019 11:4 5 AM EST us Rosie Jackson ANP HISTORICAL/NON ORDERABLE LABS Fi nal Result [facility] [address] from Last 3 Months or Most Recently Relevant to Health Maintenance Insurance DENTAL - HSN PARTIAL (MEDICAID) Care Teams Client Business Manager Relationship Specialty Start Date End Date Rosie Jackson ANP [address] [place] [address] PCP - General Family Medicine 10/16/19
--- OUTSIDE RECORDS SUMMARY | 2025-07-21 21:18 | XMS_ITS | Encounter Summary ---
Author Organization [email or web address] Address [address] [facility] [address] [place] [address] Care Team Providers Care Transcribing Machine Mechanic Name Role Phone Amee Bernadette WILLARD Primary Care Provider [phone] Encounter Details Date Type Department Care Team [...] Description 09/17/2025 2:15 PM EST Office Visit [facility] [address] [place] [phone] Bernadette Lubin ANP [address] [place] [phone] 09/20/2025 1:15 PM EST Office Visit [address] [address] Bernadette Lubin ANP [address] [place] [phone] documented as of this encounter Visit Diagnoses Not on filedocumented in this encounter Additional Health Concerns Assessment Noted Time PHQ-9 Depression Total Score: 0 01/16/20 25 9:31 AM EDT documented as of this encounter Care Teams Transcribing Machine Mechanic Relationship Specialty Start Date End Date Bernadette Lubin ANP [address] [place] [phone] PCP - General Family Medicine 10/16/19 documented as of this encounter
--- OUTSIDE RECORDS SUMMARY | 2025-07-21 21:18 | XMS_ITS | Encounter Summary ---
Author Organization [employer] Address [address] [facility] [address] [place] [address] Care Team Providers Care Finishing Operator Name Role Phone Bernadette Lubin Primary Care Provider [phone] Reason for Visit * Reason Onset Date Comments Results 07/21/2025 Encounter Details Date Type Department Care Team ([facility] Contact Info) Description 07/21/2025 Results Follow-Up [facility] [address] [place] [address] Bernadette Lubin ANP [address] [place] [address] Bacterial Vaginosis Panel Social History Tobacco Use Types Packs/Day Years [...] the past 12 months, has t he [employer], gas, oil or water [employer] threatened to shut off services in your [...] encounter Miscellaneous Notes * Telephone Encounter - Madeline Reeder RN - 07/21/2025 2:56 PM EST Telephone call to pt via BLS [phone], informed that testing came back positive for yeast infection. Educated on fluconazole instructions, pt to miner pick soon. Advised her to call back if sxs unresolved after finishing medication. Pt verbalized understanding. * Telephone Encounter - Madeline Reeder RN - 07/21/2025 2:49 PM EST ----- Message from Bernadette Lubin sent at 07/21/2025 2:28 PM EST ----- Rx'd diflucan at appointment - please let pt to cont w/ current plan of care. Vaginal testing did show yeast, likely from recent antibiotics use. ----- Message ----- From: Interface, Lab Results In Sent: 07/21/2025 12:46 AM EST To: MONTSE Mccann * Result Encounter Note - MONTSE Mccann - 07/21/2025 2:28 PM EST Rx'd diflucan at appointment - please let pt to cont w/ current plan of care. Vaginal testing did show yeast, likely from recent antibiotics use. documented in this encounter Plan of Treatment Upcoming Encounters Date Type Department Care Team (Late st Contact Info) Description 09/17/2025 2:15 PM EST Office Visit [facility] [address] [place] [phone] Bernadette Lubin ANP [address] [place] [phone] 09/20/2025 1:15 PM EST Office Visit [facility] [address] [place] [address] Bernadette Lubin ANP [address] [place] [phone] documented as of this encounter Visit Diagnoses Not on filedocumented in this encounter Additional Health Concerns Assessment Noted Time PHQ-9 Depression Total Score: 0 01/16/20 25 9:31 AM EDT documented as of this encounter Care Teams Finishing Operator Relationship Specialty Start Date End Date Bernadette Lubin ANP [address] [place] [phone] PCP - General Family Medicine 10/16/19 documented as of this encounter
--- OUTSIDE RECORDS SUMMARY | 2025-07-21 21:18 | XMS_ITS | Clinical Summary ---
Author Organization Private Practice [facility] ity Address [address] [place] [address] Care Team Providers Care Box Spring Maker Name Role Phone Paty Negron MD Primary Care Provider [phone] Medical History Medical History Date Comments Essential [...] age to complete this topic Care Teams Box Spring Maker Relationship Specialty Start Date End Date Paty Negron MD [address] [place] [phone] PCP - General 04/05/22
--- OUTSIDE RECORDS SUMMARY | 2025-07-21 21:19 | XMS_ITS | Encounter Summary ---
Author Organization [employer] Address [address] [facility] [address] [place] [address] Care Team Providers Care Production Operations Manager Name Role Phone Bernadette Lubin Primary Care Provider [phone] Reason for Visit * Reason Onset Date Comments uanble to post insurance 10/13/2024 Encounter Details Date Type Department Care Team ([facility] st Contact Info) Description 10/13/2024 Telephone [facility] [address] [place] [address] Chel Subramanian DDS [address] [place], [place] [phone] uanble to post insurance Social History Tobacco [...] Description 09/17/2025 2:15 PM EST Office Visit [address] [address] Bernadette Lubin ANP [address] [place] [phone] 09/20/2025 1:15 PM EST Office Visit [address] [address] Bernadette Lubin ANP [address] [place] [phone] documented as of this encounter Visit Diagnoses Not on filedocumented in this encounter Additional Health Concerns Assessment Noted Time PHQ-9 Depression Total Score: 5 03/06/20 24 11:15 AM EDT documented as of this encounter Care Teams Production Operations Manager Relationship Specialty Start Date End Date Bernadette Lubin ANP [address] [place] [address] PCP - General Family Medicine 10/16/19 documented as of this encounter
--- OUTSIDE RECORDS SUMMARY | 2025-07-21 21:19 | XMS_ITS | Encounter Summary ---
Author Organization [employer] Address [address] [facility] [address] [place] [address] Care Team Providers Care Solar Installer Technician Name Role Phone Bernadette Lubin Primary Care Provider [phone] Reason for Visit * Reason Onset Date Comments chart prep 07/19/2025 Encounter Details Date Type Department Care Team ([facility] Contact Info) Description 07/19/2025 Telephone [facility] [address] [place], [place] [phone] Bernadette Lubin ANP [address] [place] [address] chart prep Social History Tobacco Use Types [...] the past 12 months, has t he [employer], gas, oil or water company threatened to [...] Description 09/17/2025 2:15 PM EST Office Visit [address] [address] Bernadette Lubin ANP [address] [place] [address] 09/20/2025 1:15 PM EST Office Visit [address] [address] Bernadette Lubin ANP [address] [place] [phone] documented as of this encounter Visit Diagnoses Not on filedocumented in this encounter Additional Health Concerns Assessment Noted Time PHQ-9 Depression Total Score: 0 01/16/20 25 9:31 AM EDT documented as of this encounter Care Teams Solar Installer Technician Relationship Specialty Start Date End Date Bernadette uLbin ANP [address] [place] [address] PCP - General Family Medicine 10/16/19 documented as of this encounter
== END 2025-07-21 13:46 | disposition home or self-care (01) ==
LOC: HO.HHCL 13:45
PROVIDERS: Nurse Practitioner Family; PCP Nurse Practitioner Primary Care; Visit Provider Nurse Practitioner Primary Care
DX: R79.89 Other specified abnormal findings of blood chemistry (principal); R30.0 Dysuria; R20.0 Anesthesia of skin
CPT/HCPCS: 36415; 80048; 81001; 82607; 82728; 83036; 83690; 85610; 86364